=== PATIENT | female | born 1990 | race Caucasian/White ===

== ENCOUNTER 2020-11-24 17:30 | Emergency (ER) | payer SELFPAY ==
[2020-11-24 18:03] VITALS: BP 147/95; PULSE 89; RESP 18; TEMP 37.3; O2SAT 100; BMI 18.4
[2020-11-24 21:39] VITALS: BP 153/97; PULSE 77; RESP 18; O2SAT 100
--- NOTE | 2020-11-24 21:45 | ED_ITS ---
HPI - General Adult General: Chief complaint: General Medical Stated complaint: COMING OFF MEDS: JASWINDERS ,SHAKY,DEPRESSED,ANXIOUS Time Seen by Provider: 11/24/20 21:39 History of Present Illness: HPI narrative: Patient is a 30-year-old female comes to the ED with anxiety and needing medication refills. Patient just moved here to [place] from [place] within the last couple weeks. She is currently on a prescription for Pristiq 50mg, Klonopin 0.5mg and Ambien. She has run out of her prescription for all 3 meds about a week and a half ago and is try to get set up with behavioral health here. She reports feeling some increased anxiety and is still with a lot of stress from her move. Denies any SI or HI. Associated symptoms: Deny chest pain, dyspnea, headache(s), nausea, rash, palpitations or vomiting Review of Systems Const: Denies: fever(s), chills or fatigue Eyes: Denies: change in vision or eye discomfort ENMT: Denies: throat pain, odynophagia, nasal discharge or nasal congestion Card: Denies: chest pain, palpitations, edema, swelling of feet/ankles, dyspnea on exertion or orthopnea Resp: Denies: dyspnea, productive cough or non-productive cough GI: Denies: abdominal pain, nausea, vomiting, diarrhea, constipation or hematochezia : Denies: flank pain, dysuria or hematuria Musc: Denies: neck pain, back pain or extremity swelling Skin/Breast: Denies: rash or new lesions Neuro: Denies: headache(s), numbness in extremities or weakness in extremities Psych: Reports: anxiety; Denies: suicidal ideation or homicidal ideation [facility] ED PFSH: Medical History Depression Female Reproductive History: Date of last menstrual period: 10/30/20 Physical Exam Const: COMMON NORMALS: no acute distress, patient oriented x3, healthy appearing and alert GENERAL APPEARANCE: cooperative and comfortable HENMT: COMMON NORMALS: normocephalic HEAD & SCALP: normocephalic MOUTH: Normal oral and palatal mucosa present THROAT: posterior oropharynx normal and uvula midline Eye: COMMON NORMALS: Equal, round and reactive pupils present PUPIL: Yes Equal, round and reactive pupils present Neck/C-Spine: COMMON NORMALS: supple GENERAL: Yes normal visual inspection Resp: COMMON NORMALS: normal respiratory effort, No retractions, No use of accessory muscles and clear to auscultation bilaterally AUSCULTATION: clear to auscultation bilaterally Cardio: COMMON NORMALS: regular rate, regular rhythm, S1 normal heart sound present, S2 normal heart sound present, No gallops present (Cardio), No clicks present (Cardio), No murmurs present (Cardio) and Peripheral pulses 2+ throughout RATE: regular rate RHYTHM: regular rhythm HEART SOUNDS: S1 normal heart sound present and S2 normal heart sound present PERIPHERAL PULSES: Peripheral pulses 2+ throughout GI: COMMON NORMALS: Normal to inspection, nondistended, normoactive bowel sounds present, Soft to palpation, non-tender and no masses PALPATION: Yes Soft to palpation : COMMON NORMALS: Yes no CVA tenderness BLADDER/KIDNEY EXAM: Yes no CVA tenderness Back/Pelvis: COMMON NORMALS: no CVA tenderness Extremity: COMMON NORMALS: normal to inspection Neuro: COMMON NORMALS: patient oriented x3 and moves all extremities SENSORIUM/ORIENTATION: Yes alert Psych: COMMON NORMALS: mental status grossly normal, Normal thought process present, cooperative, speech normal, activity/motor behavior normal, denies hallucinations, denies homicidal ideation and denies suicidal ideation SPEECH: Yes normal speech THOUGHT PROCESS: Normal thought process present Skin: GENERAL SKIN EXAM: dry skin Course Vital Signs: Vital signs: Vital Signs Temperature 99.2 F 11/24/20 18:03 Pulse Rate 77 11/24/20 21:39 Respiratory Rate 18 11/24/20 21:39 Blood Pressure 153/97 11/24/20 21:39 Pulse Oximetry 100 11/24/20 21:39 MDM - General Adult 2 MDM Narrative: Medical decision making narrative: Patient is a 30-year-old female comes to the ED with medication refill and anxiety. Patient currently takes Pristiq and Klonopin and has been out of her prescription of this for the past week and a half. Patient just moved from [place] couple weeks ago and is trying to get established with behavioral health. Patient denies any HI or SI. Exam shows a healthy 30-year-old female in no acute distress or pain. Rest of exam is benign. I placed an order with case management for patient to be referred to behavioral health to get established with them. Patient was given a dose of Ativan while here in the ED and then discharged home with a prescription for Pristiq and Klonopin. I told patient that case management will be contacting them in the next several days set up an appoint with behavioral health. Return to ED precautions given. Patient understood agree with plan. Discharge Plan Discharge Patient Disposition: Home Clinical Impression: Anxiety, Medication refill Condition: Stable Prescriptions: New Pristiq 50 mg tablet extended release 24 hr 50 mg PO DAILY Qty: 20 RF: 0 Discharge Orders: Discharge ED (Routine); Ordered 11/24/20 Ordered By: Nando Peres Discharge Diet: Regular Discharge Activity: Resume usual activity Patient Instructions: Clonazepam (By mouth), Anxiety (ED) Activity Restrictions/Additional Instructions: Follow-up with medical provider as directed. Case management should be contac ting you in the next several days set up an appointment with behavioral health. Take medications as prescribed. Return to the ER or your medical provider if condition worsens. Please read and understand discharge instructions. Thank you for choosing [facility] for your healthcare needs today. Please realize this is an emergency room and that we are providing you with a medical screening exam and this may not be complete and all inclusive of all the testing and or work up that you may need to determine your ailment or severity of your illness. It is very important that you follow up as instructed or that you return to the Emergency Department should you have concerns or if your condition changes or worsens in any way. Coding Level of Care Code ED Specialty Sales Consultant for Scarlett Garcia Exam Comprehensive
[2020-11-24] MEDS: LORazepam 1 mg Tablet PO (22:29)
--- NOTE | 2020-11-29 09:57 | DCPLANNER ---
lead portfolio manager had message to speak with patient about services at [facility]. lead portfolio manager called phone number [phone], unable to speak with patient at this time, and unable to leave a voicemail for patient due to no voicemail box set up.
== END 2020-11-24 23:04 | disposition home or self-care (01) ==
PROVIDERS: Emergency Provider Physician Assistant
DX: Z76.0 Encounter for issue of repeat prescription (principal); F41.9 Anxiety disorder, unspecified
CPT/HCPCS: 99283

== ENCOUNTER 2020-12-20 11:47 | Inpatient (IN) | payer OTHER, SELFPAY ==
[2020-12-20 12:14] VITALS: BP 123/67; PULSE 74; RESP 19; TEMP 36.9; O2SAT 97
--- NOTE | 2020-12-20 12:49 | W.ED.GENADLT ---
Documented by User: BHARATH Davey 12/21/20 10:49 HPI - General Adult General: Chief complaint: General Medical Stated complaint: sent by [facility] Time Seen by Provider: 12/20/20 12:48 History of Present Illness: HPI narrative: Patient is a 30-year-old female comes to the ED with SI. Patient was seen by [facility] earlier today and then was sent over here to the ED for further evaluation. Patient is currently out of her Pristiq medication and [facility] was unable to have patient seen by a doctor to prescribe her med for another 2 more months. She reports going through a lot of stress currently and is the middle of custody issue with her daughter. She feels like she is under a lot of stress right now and says she is having a lot of thoughts of suicide. She denies having a current plan in place. She is also complaining of skin burning painful to touch. Associated symptoms: Deny chest pain, dyspnea, headache(s), nausea, rash, palpitations or vomiting Review of Systems Const: Denies: fever(s), chills or fatigue Eyes: Denies: change in vision or eye discomfort ENMT: Denies: throat pain, odynophagia, nasal discharge or nasal congestion Card: Denies: chest pain, palpitations, edema, swelling of feet/ankles, dyspnea on exertion or orthopnea Resp: Denies: dyspnea, productive cough or non-productive cough GI: Denies: abdominal pain, nausea, vomiting, diarrhea, constipation or hematochezia : Denies: flank pain, dysuria or hematuria Musc: Denies: neck pain, back pain or extremity swelling Skin/Breast: Denies: rash or new lesions Neuro: Denies: headache(s), numbness in extremities or weakness in extremities Psych: Reports: anxiety, depression, sleeping less and suicidal ideation; Denies: visual hallucinations, auditory hallucinations, tactile hallucinations or homicidal ideation [facility] PFSH: Medical History Depression Female Reproductive History: Date of last menstrual period: 10/30/20 Physical Exam Const: COMMON NORMALS: no acute distress, patient oriented x3, healthy appearing and alert GENERAL APPEARANCE: cooperative, anxious and other (pt is tearful during HPI) HENMT: COMMON NORMALS: normocephalic HEAD & SCALP: normocephalic MOUTH: Normal oral and palatal mucosa present THROAT: posterior oropharynx normal and uvula midline Neck/C-Spine: COMMON NORMALS: supple GENERAL: Yes normal visual inspection Resp: COMMON NORMALS: normal respiratory effort, No retractions, No use of accessory muscles and clear to auscultation bilaterally AUSCULTATION: clear to auscultation bilaterally Cardio: COMMON NORMALS: regular rate, regular rhythm, S1 normal heart sound present, S2 normal heart sound present, No gallops present (Cardio), No clicks present (Cardio), No murmurs present (Cardio) and Peripheral pulses 2+ throughout RATE: regular rate RHYTHM: regular rhythm HEART SOUNDS: S1 normal heart sound present and S2 normal heart sound present PERIPHERAL PULSES: Peripheral pulses 2+ throughout GI: COMMON NORMALS: Normal to inspection, nondistended, normoactive bowel sounds present, Soft to palpation, non-tender and no masses PALPATION: Yes Soft to palpation : COMMON NORMALS: Yes no CVA tenderness BLADDER/KIDNEY EXAM: Yes no CVA tenderness Back/Pelvis: COMMON NORMALS: no CVA tenderness Extremity: COMMON NORMALS: normal to inspection Neuro: COMMON NORMALS: patient oriented x3 and moves all extremities SENSORIUM/ORIENTATION: Yes alert Psych: COMMON NORMALS: mental status grossly normal, Normal thought process present, cooperative and speech normal ATTITUDE: Yes calm ACTIVITY/MOTOR BEHAVIOR: Yes appropriate eye contact SPEECH: Yes normal speech MOOD & AFFECT: Yes anxious, Yes sad and Yes tearful THOUGHT PROCESS: Normal thought process present THOUGHT CONTENT: Yes Suicidality present ATTENTION/CONCENTRATION: Yes attention grossly intact and Yes concentration grossly intact MEMORY/COGNITION: Yes memory grossly intact and Yes cognition grossly intact INSIGHT: Fair insight present (Psych) JUDGEMENT: Fair judgement present (Psych) Skin: GENERAL SKIN EXAM: dry skin Course Consultations: Consultation #1: I contacted Dr. Godinez about patient case. He agreed to have patient admitted into the [facility]. Time: 14:00 Vital Signs: Vital signs: Vital Signs Temperature 97.5 F L 12/23/20 09:27 Pulse Rate 58 L 12/23/20 09:27 Respiratory Rate 16 12/23/20 09:27 Blood Pressure 87/53 12/23/20 09:27 Pulse Oximetry 96 12/23/20 09:27 MDM - General Adult MDM Narrative: Medical decision making narrative: Patient is a 30-year-old female comes to the ED with SI. Patient was seen at [facility] earlier today and then was sent here to the ED for evaluation. She has been out of her medication Pristiq and having worsening depression and anxiety. She is also going through a lot of stress right now. Has a lot of suicidal thoughts but does not currently have a plan. Screening exam performed and all screening labs completed here in the ED. Patient's urine drug screen was positive for marijuana and benzodiazepines. I contacted Dr. Godinez and told him about patient case. He agreed to have patient admitted into the [facility]. I talked with Dr. Siddiqi about patient and he will be placing the admitting orders. Lab Data: Attestation: I reviewed the patient's lab results. Labs: Lab Results 12/20/20 12/20/20 12/20/20 Range/Units 13:18 13:18 13:18 WBC 7.7 (4.0-10.0) 10^3/ uL RBC 4.56 (4.1-5.3) 10^6/u L Hgb 14.5 (11.5-15.3) g/dL Hct 44.8 (37.0-47.0) % MCV 98.2 (81-99) fl MCH 31.8 (28.0-34.0) pg MCHC 32.4 (30.0-36.0) g/dL RDW 12.2 (12.1-15.1) % Plt Count 281 (130-400) 10^3/c mm MPV 10.4 (7.4-10.4) fL Neut % (Auto) 71.9 % Lymph % (Auto) 22.3 % Henderson % (Auto) 3.2 % Eos % (Auto) 2.1 % Baso % (Auto) 0.4 % Neut # (Auto) 5.56 (1.8-7.7) 10^3/u L Lymph # (Auto) 1.7 (0.8-4.8) 10^3/u L Henderson # (Auto) 0.3 (0.2-0.9) 10^3/u L Eos # (Auto) 0.2 (0.0-0.8) 10^3/u L Baso # (Auto) 0.0 (0.0-0.1) 10^3/u L Nucleated RBC % (a uto) 0 % Nucleated RBCs # 0.0 /100WBC Sodium 138 (136-145) mmol/L Potassium 3.5 (3.5-5.1) mmol/L Chloride 101 (98-107) mmol/L Carbon Dioxide 26 (22-29) mmol/L Anion Gap 14.5 (5-19) BUN 4 L (6-20) mg/dL Creatinine 0.6 (0.5-0.9) mg/dL GFR Calculation 118.2 (90-130) mL/min Glucose 114 (65-115) mg/dL Calculated Osmolal ity 284 L (285-295) mOsm/k g Calcium 8.6 (8.5-10.5) mg/dL Total Bilirubin 0.4 (0.15-1.2) mg/dL AST 11 (0-32) U/L ALT 10 (0-33) U/L Alkaline Phosphata se 49 (35-105) IU/L Total Protein 6.8 (6.6-8.7) g/dL Albumin 4.6 (3.5-5.2) g/dL Globulin 2.2 (1.3-4.6) g/dL HCG, Qual Negative (Negative) Urine Color (Yellow) Urine Appearance (CLEAR) Urine pH (5-7) Ur Specific Gravit y (1.005-1.030) Urine Protein (Negative) Urine Glucose (UA) (Normal) Urine Ketones (Negative) Urine Blood (Negative) Urine Nitrate (Negative) Urine Bilirubin (Negative) Urine Urobilinogen (Negative) mg/dL Ur Leukocyte Osiris ase (Negative) Urine RBC (0-2) /hpf Urine WBC (0-5) /hpf Ur Squamous Epith Cells (0-5) /hpf Amorphous Sediment Urine Bacteria (NONE) /hpf Salicylates < 0.3 L (3-10) mg/dL Urine Opiates Scre en (Negative) ng/mL Acetaminophen < 5.0 L (10-30) ug/mL Ur Barbiturates Sc reen (Negative) ng/mL Ur Phencyclidine S crn (Negative) ng/mL Ur Amphetamines Sc reen (Negative) ng/mL U Benzodiazepines Scrn (Negative) ng/mL Urine Cocaine Scre en (Negative) ng/mL U Marijuana (THC) Screen (Negative) ng/mL Ethyl Alcohol < 10 (0-10) mg/dL 12/20/20 12/20/20 Range/Units 13:18 13:18 WBC (4.0-10.0) 10^3/ uL RBC (4.1-5.3) 10^6/u L Hgb (11.5-15.3) g/dL Hct (37.0-47.0) % MCV (81-99) fl MCH (28.0-34.0) pg MCHC (30.0-36.0) g/dL RDW (12.1-15.1) % Plt Count (130-400) 10^3/c mm MPV (7.4-10.4) fL Neut % (Auto) % Lymph % (Auto) % Henderson % (Auto) % Eos % (Auto) % Baso % (Auto) % Neut # (Auto) (1.8-7.7) 10^3/u L Lymph # (Auto) (0.8-4.8) 10^3/u L Henderson # (Auto) (0.2-0.9) 10^3/u L Eos # (Auto) (0.0-0.8) 10^3/u L Baso # (Auto) (0.0-0.1) 10^3/u L Nucleated RBC % (a uto) % Nucleated RBCs # /100WBC Sodium (136-145) mmol/L Potassium (3.5-5.1) mmol/L Chloride (98-107) mmol/L Carbon Dioxide (22-29) mmol/L Anion Gap (5-19) BUN (6-20) mg/dL Creatinine (0.5-0.9) mg/dL GFR Calculation (90-130) mL/min Glucose (65-115) mg/dL Calculated Osmolal ity (285-295) mOsm/k g Calcium (8.5-10.5) mg/dL Total Bilirubin (0.15-1.2) mg/dL AST (0-32) U/L ALT (0-33) U/L Alkaline Phosphata se (35-105) IU/L Total Protein (6.6-8.7) g/dL Albumin (3.5-5.2) g/dL Globulin (1.3-4.6) g/dL HCG, Qual (Negative) Urine Color Yellow (Yellow) Urine Appearance Hazy A (CLEAR) Urine pH 5 (5-7) Ur Specific Gravit y 1.020 (1.005-1.030) Urine Protein Neg (Negative) Urine Glucose (UA) Norm (Normal) Urine Ketones Negative (Negative) Urine Blood Neg (Negative) Urine Nitrate Negative (Negative) Urine Bilirubin Neg (Negative) Urine Urobilinogen Norm (Negative) mg/dL Ur Leukocyte Osiris ase 1+ H (Negative) Urine RBC None (0-2) /hpf Urine WBC 5-10 H (0-5) /hpf Ur Squamous Epith Cells 40-55 H (0-5) /hpf Amorphous Sediment Not Reportable Urine Bacteria 1+ H (NONE) /hpf Salicylates (3-10) mg/dL Urine Opiates Scre en Negative (Negative) ng/mL Acetaminophen (10-30) ug/mL Ur Barbiturates Sc reen Negative (Negative) ng/mL Ur Phencyclidine S crn Negative (Negative) ng/mL Ur Amphetamines Sc reen Negative (Negative) ng/mL U Benzodiazepines Scrn Positive H (Negative) ng/mL Urine Cocaine Scre en Negative (Negative) ng/mL U Marijuana (THC) Screen Positive H (Negative) ng/mL Ethyl Alcohol (0-10) mg/dL Discharge Plan Discharge Patient Disposition: Admitted As Inpatient Admit Provider: Clyde Godinez Clinical Impression: Depression Condition: Stable Discharge Diet: Regular Discharge Activity: Resume usual activity Sign Out Sign Out Data: Patient Sign Out occurred on 12/20/20 at 14:14. Patient's care was discussed, and care was transferred from to Eamon Trinidad DO. Coding Level of Care Code ED Compliance Engineer for Chg Fwd Exam Comprehensive Documented by User: Eamon Trinidad DO 12/26/20 09:09 HPI - General Adult General: Chief complaint: General Medical Stated complaint: sent by [facility] Time Seen by Provider: 12/20/20 12:48 PFSH ED PFSH: Medical History Depression Course Vital Signs: Vital signs: Vital Signs Temperature 97.5 F L 12/23/20 09:27 Pulse Rate 58 L 12/23/20 09:27 Respiratory Rate 16 12/23/20 09:27 Blood Pressure 87/53 12/23/20 09:27 Pulse Oximetry 96 12/23/20 09:27 MDM - General Adult MDM Narrative: Medical decision making narrative: Reviewed chart and seen pt in the ER. Discussed with Catrachita and admit orders written. Lab Data: Labs: Lab Results 12/20/20 12/20/20 12/20/20 Range/Units 13:18 13:18 13:18 WBC 7.7 (4.0-10.0) 10^3/ uL RBC 4.56 (4.1-5.3) 10^6/u L Hgb 14.5 (11.5-15.3) g/dL Hct 44.8 (37.0-47.0) % MCV 98.2 (81-99) fl MCH 31.8 (28.0-34.0) pg MCHC 32.4 (30.0-36.0) g/dL RDW 12.2 (12.1-15.1) % Plt Count 281 (130-400) 10^3/c mm MPV 10.4 (7.4-10.4) fL Neut % (Auto) 71.9 % Lymph % (Auto) 22.3 % Henderson % (Auto) 3.2 % Eos % (Auto) 2.1 % Baso % (Auto) 0.4 % Neut # (Auto) 5.56 (1.8-7.7) 10^3/u L Lymph # (Auto) 1.7 (0.8-4.8) 10^3/u L Henderson # (Auto) 0.3 (0.2-0.9) 10^3/u L Eos # (Auto) 0.2 (0.0-0.8) 10^3/u L Baso # (Auto) 0.0 (0.0-0.1) 10^3/u L Nucleated RBC % (a uto) 0 % Nucleated RBCs # 0.0 /100WBC Sodium 138 (136-145) mmol/L Potassium 3.5 (3.5-5.1) mmol/L Chloride 101 (98-107) mmol/L Carbon Dioxide 26 (22-29) mmol/L Anion Gap 14.5 (5-19) BUN 4 L (6-20) mg/dL Creatinine 0.6 (0.5-0.9) mg/dL GFR Calculation 118.2 (90-130) mL/min Glucose 114 (65-115) mg/dL Calculated Osmolal ity 284 L (285-295) mOsm/k g Calcium 8.6 (8.5-10.5) mg/dL Total Bilirubin 0.4 (0.15-1.2) mg/dL AST 11 (0-32) U/L ALT 10 (0-33) U/L Alkaline Phosphata se 49 (35-105) IU/L Total Protein 6.8 (6.6-8.7) g/dL Albumin 4.6 (3.5-5.2) g/dL Globulin 2.2 (1.3-4.6) g/dL HCG, Qual Negative (Negative) Urine Color (Yellow) Urine Appearance (CLEAR) Urine pH (5-7) Ur Specific Gravit y (1.005-1.030) Urine Protein (Negative) Urine Glucose (UA) (Normal) Urine Ketones (Negative) Urine Blood (Negative) Urine Nitrate (Negative) Urine Bilirubin (Negative) Urine Urobilinogen (Negative) mg/dL Ur Leukocyte Osiris ase (Negative) Urine RBC (0-2) /hpf Urine WBC (0-5) /hpf Ur Squamous Epith Cells (0-5) /hpf Amorphous Sediment Urine Bacteria (NONE) /hpf Salicylates < 0.3 L (3-10) mg/dL Urine Opiates Scre en (Negative) ng/mL Acetaminophen < 5.0 L (10-30) ug/mL Ur Barbiturates Sc reen (Negative) ng/mL Ur Phencyclidine S crn (Negative) ng/mL Ur Amphetamines Sc reen (Negative) ng/mL U Benzodiazepines Scrn (Negative) ng/mL Urine Cocaine Scre en (Negative) ng/mL U Marijuana (THC) Screen (Negative) ng/mL Ethyl Alcohol < 10 (0-10) mg/dL 12/20/20 12/20/20 Range/Units 13:18 13:18 WBC (4.0-10.0) 10^3/ uL RBC (4.1-5.3) 10^6/u L Hgb (11.5-15.3) g/dL Hct (37.0-47.0) % MCV (81-99) fl MCH (28.0-34.0) pg MCHC (30.0-36.0) g/dL RDW (12.1-15.1) % Plt Count (130-400) 10^3/c mm MPV (7.4-10.4) fL Neut % (Auto) % Lymph % (Auto) % Henderson % (Auto) % Eos % (Auto) % Baso % (Auto) % Neut # (Auto) (1.8-7.7) 10^3/u L Lymph # (Auto) (0.8-4.8) 10^3/u L Henderson # (Auto) (0.2-0.9) 10^3/u L Eos # (Auto) (0.0-0.8) 10^3/u L Baso # (Auto) (0.0-0.1) 10^3/u L Nucleated RBC % (a uto) % Nucleated RBCs # /100WBC Sodium (136-145) mmol/L Potassium (3.5-5.1) mmol/L Chloride (98-107) mmol/L Carbon Dioxide (22-29) mmol/L Anion Gap (5-19) BUN (6-20) mg/dL Creatinine (0.5-0.9) mg/dL GFR Calculation (90-130) mL/min Glucose (65-115) mg/dL Calculated Osmolal ity (285-295) mOsm/k g Calcium (8.5-10.5) mg/dL Total Bilirubin (0.15-1.2) mg/dL AST (0-32) U/L ALT (0-33) U/L Alkaline Phosphata se (35-105) IU/L Total Protein (6.6-8.7) g/dL Albumin (3.5-5.2) g/dL Globulin (1.3-4.6) g/dL HCG, Qual (Negative) Urine Color Yellow (Yellow) Urine Appearance Hazy A (CLEAR) Urine pH 5 (5-7) Ur Specific Gravit y 1.020 (1.005-1.030) Urine Protein Neg (Negative) Urine Glucose (UA) Norm (Normal) Urine Ketones Negative (Negative) Urine Blood Neg (Negative) Urine Nitrate Negative (Negative) Urine Bilirubin Neg (Negative) Urine Urobilinogen Norm (Negative) mg/dL Ur Leukocyte Osiris ase 1+ H (Negative) Urine RBC None (0-2) /hpf Urine WBC 5-10 H (0-5) /hpf Ur Squamous Epith Cells 40-55 H (0-5) /hpf Amorphous Sediment Not Reportable Urine Bacteria 1+ H (NONE) /hpf Salicylates (3-10) mg/dL Urine Opiates Scre en Negative (Negative) ng/mL Acetaminophen (10-30) ug/mL Ur Barbiturates Sc reen Negative (Negative) ng/mL Ur Phencyclidine S crn Negative (Negative) ng/mL Ur Amphetamines Sc reen Negative (Negative) ng/mL U Benzodiazepines Scrn Positive H (Negative) ng/mL Urine Cocaine Scre en Negative (Negative) ng/mL U Marijuana (THC) Screen Positive H (Negative) ng/mL Ethyl Alcohol (0-10) mg/dL Discharge Plan Discharge Patient Disposition: Admitted As Inpatient Admit Provider: Clyde Godinez Clinical Impression: Depression Condition: Stable Discharge Diet: Regular Discharge Activity: Resume usual activity Sign Out Sign Out Data: Patient Sign Out occurred on 12/20/20 at 14:14. Patient's care was discussed, and care was transferred from to Eamon Trinidad DO. Coding Level of Care Code ED Compliance Engineer for Jeffreyg Fwd Exam Comprehensive
[2020-12-20] MEDS: LORazepam 1 mg Tablet PO (13:27)
[2020-12-20 13:28] LABS: Basophils % 0.4 %; Eosinophils # 0.2 10^3/uL (0.0-0.8); Eosinophils % 2.1 %; Hematocrit 44.8 % (37.0-47.0); Hemoglobin 14.5 g/dL (11.5-15.3); Lymphocytes # 1.7 10^3/uL (0.8-4.8); Lymphocytes % 22.3 %; Mean Corpuscular HGB Conc 32.4 g/dL (30.0-36.0); Mean Corpuscular Hemoglobin 31.8 pg (28.0-34.0); Mean Corpuscular Volume 98.2 fl (81-99); Mean Platelet Volume 10.4 fL (7.4-10.4); Monocytes # 0.3 10^3/uL (0.2-0.9); Monocytes % 3.2 %; Neutrophils # 5.56 10^3/uL (1.8-7.7); Neutrophils % 71.9 %; Nucleated Red Blood Cells % 0 %; Platelet Count 281 10^3/cmm (130-400); Red Blood Count 4.56 10^6/uL (4.1-5.3); Red Cell Distribution Width 12.2 % (12.1-15.1); White Blood Count 7.7 10^3/uL (4.0-10.0)
[2020-12-20 13:35] LABS: Bilirubin Urine Neg (Negative); Blood Urine Neg (Negative); Glucose Urine UA Norm (Normal); Ketones Urine Negative (Negative); Leukocyte Esterase Urine 1+ (Negative); Nitrate Urine Negative (Negative); Protein Urine Neg (Negative); Urine Appearance Hazy (CLEAR); Urine Color Yellow (Yellow); Urobilinogen Urine Norm (Negative); pH Urine 5 (5-7)
[2020-12-20 13:37] LABS: Add Urine Culture? No; Bacteria Urine 1+ /hpf; HCG, Serum Qual Negative (Negative); Squamous Epithelial Cell Urine 40-55 /hpf (0-5)
[2020-12-20 13:39] LABS: Amphetamines Screen Urine Negative (Negative); Barbiturates Screen Urine Negative (Negative); Benzodiazepines Screen Urine Positive (Negative); Cocaine Screen Urine Negative (Negative); Opiate Screen Urine Negative (Negative); PCP Screen Urine Negative (Negative); THC Screen Urine Positive (Negative)
[2020-12-20 13:44] LABS: Alanine Aminotransferase 10 U/L (0-33); Albumin Level 4.6 g/dL (3.5-5.2); Alkaline Phosphatase 49 IU/L (35-105); Anion Gap 14.5 (5-19); Aspartate Amino Transferase 11 U/L (0-32); Blood Urea Nitrogen 4 mg/dL (6-20); Calcium 8.6 mg/dL (8.5-10.5); Carbon Dioxide 26 mmol/L (22-29); Chloride 101 mmol/L (98-107); Globulin 2.2 g/dL (1.3-4.6); Glomerular Filtration Rate 118.2 mL/min (90-130); Glucose 114 mg/dL (65-115); Osmolality Calculated 284 mOsm/kg (285-295); Potassium 3.5 mmol/L (3.5-5.1); Sodium 138 mmol/L (136-145); Total Bilirubin 0.4 mg/dL (0.15-1.2); Total Protein 6.8 g/dL (6.6-8.7)
[2020-12-20 13:47] LABS: Acetaminophen < 5.0 ug/mL (10-30); Alcohol Level < 10 mg/dL (0-10); Salicylate < 0.3 mg/dL (3-10)
[2020-12-20 16:41] VITALS: BP 104/66; PULSE 65; RESP 16; TEMP 36.7; O2SAT 99
[2020-12-20] MEDS: nicotine 2 mg Gum BUCCAL (18:48)
[2020-12-20 21:37] VITALS: BP 94/59; PULSE 73; RESP 17; TEMP 36.8; O2SAT 98
[2020-12-20] MEDS: zolpidem 5 mg Tablet 10 MG PO (23:16)
[2020-12-21 06:00] VITALS: BP 93/57; PULSE 60; RESP 18; TEMP 36.6; O2SAT 97
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
[2020-12-21] MEDS: desvenlafaxine 50 mg Tablet PO (08:27)
[2020-12-21] MEDS: acetaminophen 325 mg Tablet 650 MG PO (08:27)
[2020-12-21] MEDS: hyDROXYzine 25 mg Capsule 50 MG PO ×2 (08:27→18:01)
[2020-12-21] MEDS: CLONazepam 0.5 mg Tablet PO (13:39)
[2020-12-21 14:00] VITALS: BP 94/56; PULSE 74; RESP 20; TEMP 36.7; O2SAT 98
[2020-12-21] MEDS: nicotine 2 mg Gum BUCCAL (19:17)
[2020-12-21] MEDS: propranolol 20 mg Tablet PO (19:58)
[2020-12-21] MEDS: zolpidem 5 mg Tablet 10 MG PO (19:58)
[2020-12-21] MEDS: OLANZapine 5 mg ODT PO (21:12)
[2020-12-21 21:35] VITALS: BP 112/72; PULSE 76; RESP 16; TEMP 37.3; O2SAT 97
[2020-12-22 05:57] VITALS: BP 96/55; PULSE 52; RESP 16; TEMP 36.7; O2SAT 96
[2020-12-22] MEDS: desvenlafaxine 50 mg Tablet 100 MG PO (08:38)
[2020-12-22] MEDS: nicotine 2 mg Gum BUCCAL ×3 (08:57→17:26)
--- NOTE | 2020-12-22 11:35 | PM.NPN ---
Subjective NPU Subjective: Interval history: Patient presents today reporting she is feeling a little better now that the medication has been started and increased. She reports that her mother and her did speak and her mother does not want her to go to a penitentiary with her daughter and so she is going to help her get some housing. She professes feeling less stressed and feeling more optimistic knowing she will have access to her medication at discharge. We talked about the possibility discharge in the morning. Mental Status Exam MSE Comments: This is a slender, white female, in hospital scrubs, with limited grooming, and adequate eye contact. No abnormal movements except for mild psychomotor retardation. Cooperative with exam in mild distress. Speech was decreased rate and volume. Mood described as a little better; affect subdued. Thought process, organized. Thought content: patient denied any suicidal or homicidal ideation, there were no delusions reported or noted, patient denied any auditory or visual hallucinations. Attention, concentration, and memory appear intact but were not formally tested. He is alert and oriented times three. Insight and judgment appear fair. Impulse control appears fair. Vitals/I&O/Wt Last Vital Signs Temp 99.2 F 12/21/20 21:35 Pulse 76 12/21/20 21:35 Resp 16 12/21/20 21:35 BP 112/72 12/21/20 21:35 Pulse Ox 97 12/21/20 21:35 Weight last 48 hrs Weight 60.781 kg Data NPU : 12/20/20 13:18 12/20/20 13:18 A&P Additional A&P Information (1) PTSD (post-traumatic stress disorder): (2) Depression: Additional A&P Information This is a 30-year-old, white female, with a history of post-traumatic stress disorder, and significant trauma, with a recent move to the area with limited resources and unable to get bridge medication, who presents after a conflict at home, reporting a willingness to have medication adjustments. RECOMMENDATION AND PLAN: 1. Continue current medication. 2. Encourage individual, group, and milieu therapy. 3. Continue q-15 minute checks for safety. Involuntary Hold Information 96 Hour Hold: 96 Hour Involuntary Admission: No Attestations NPU Medical Necessity Statement*: Inpatient hospitalization is medically necessary and the clinically appropriate intervention, at this time. We will monitor medications and make changes as indicated. Patient will be in the hospital for over two midnights. Likely length of stay is 1-3 days. Coding Level of Care Code Acute Hammer Mill Operator for Scarlett Garcia
[2020-12-22] MEDS: CLONazepam 0.5 mg Tablet PO (12:02)
[2020-12-22] MEDS: acetaminophen 325 mg Tablet 650 MG PO (12:02)
--- NOTE | 2020-12-22 12:04 | PC.NURSE ---
PRN anxiety Patient requested anxiety medication. Given 0.5 mg of Klonopin.
--- NOTE | 2020-12-22 13:23 | NPU.GN ---
[facility] Group Topic:Communication General Mood of Group: Patient did not attend group today, she was very tired. Nursing staff agreed to leave her asleep.
[2020-12-22 14:00] VITALS: BP 111/65; PULSE 55; RESP 18; TEMP 36.6; O2SAT 97
[2020-12-22] MEDS: propranolol 20 mg Tablet PO (17:26)
[2020-12-22 20:44] VITALS: BP 121/77; PULSE 70; RESP 18; TEMP 37; O2SAT 98
[2020-12-22] MEDS: zolpidem 5 mg Tablet 10 MG PO (21:20)
[2020-12-22] MEDS: haloperidol 5 mg Tablet PO (22:22)
[2020-12-23 06:00] VITALS: BP 87/53; PULSE 58; RESP 16; TEMP 36.4; O2SAT 96
[2020-12-23] MEDS: desvenlafaxine 50 mg Tablet 100 MG PO (08:48)
[2020-12-23] MEDS: propranolol 20 mg Tablet PO (08:48)
[2020-12-23] MEDS: nicotine 2 mg Gum BUCCAL ×2 (08:48→11:37)
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
[2020-12-23] MEDS: CLONazepam 0.5 mg Tablet PO (09:13)
[2020-12-23 09:27] VITALS: BP 87/53; PULSE 58; RESP 16; TEMP 36.4; O2SAT 96
== END 2020-12-23 13:33 | disposition home or self-care (01) | DRG 881 ==
LOC: ER 14:14 → NP 14:51
PROVIDERS: Physician Assistant; Admitting Provider Psychiatry & Neurology Psychiatry; Emergency Provider Family Medicine; Visit Provider Psychiatry & Neurology Psychiatry
DX: F32.9 Major depressive disorder, single episode, unspecified (principal); R45.851 Suicidal ideations; F17.210 Nicotine dependence, cigarettes, uncomplicated; F12.90 Cannabis use, unspecified, uncomplicated; Z81.8 Family history of other mental and behavioral disorders; F43.10 Post-traumatic stress disorder, unspecified; F48.1 Depersonalization-derealization syndrome; Z91.128 Patient's intentional underdosing of medication regimen for other reason
CPT/HCPCS: 80053; 80306; 80307; 81001; 84703; 85025; 99285

== ENCOUNTER 2021-02-03 12:31 | Emergency (ER) | payer OTHER, SELFPAY ==
[2021-02-03 12:41] VITALS: BP 109/60; PULSE 83; RESP 24; TEMP 36.8; O2SAT 100
--- NOTE | 2021-02-03 12:51 | ED_ITS ---
HPI - General Adult General: Chief complaint: COVID symptoms Stated complaint: RESPIRATORY DISTRESS/ COVID + Time Seen by Provider: 02/03/21 12:34 History of Present Illness: HPI narrative: CC: Shortness of breath, fever and generalized weakness HPI: This is a [30] yo patient w/ hx of recent covid diagnosis from 2 days BIBA for moderate respiratory distress at home x 4days of fever, subjective chill, and respiratory distress. Endorses no sick contacts around. Denies chest pain, N/V, diaphoresis, exertional shortness of breath, GI or other complaints. Denies any pleuritic chest pain, recent surgery/immobilization/travel, or hematemesis or hx of VTE in the past. En route, rescue placed on 4L with O2 sat of 92-94%. Onset: 4 days ago Duration: ongoing for the last 4 days Location: home Severity: moderate/severe Review of Systems Narrative: Constitutional: +subjective fever, +generalized weakness HEENT: No vision changes CV: No chest pain, no palpitations PULM: +cough, +dyspnea. GI: No abdominal pain, no N/V/D. : No dysuria MSKEL: No muscle pain SKIN: No new rashes, no lesions. NEURO: No headache, no focal weakness. HEME: No visible bruises PSYCH: Normal mood PFSH ED PFSH: Medical History Depression Female Reproductive History: Date of last menstrual period: 10/30/20 Physical Exam Narrative: EXAM NARRATIVE: Head: Atraumatic Eyes: PERRL, conjunctiva without injection ENT: Dry membrane moist NECK: Supple without lymphadenopathy LUNGS: +Coarse lung sounds, +rhonchi and crackles throughout the lung staples, +unable to speak full sentences, +increased work of breathing CV: RRR ABDOMEN: Soft, nontender in all quadrants, no guarding or rebound tenderness EXTREMITY: Normal ROM SKIN: No rash or erythema NEURO: Awake and alert. No focal motor deficits. PSYCH: Normal mood and affect. Course Vital Signs: Vital signs: Vital Signs Temperature 98.2 F 02/03/21 12:41 Pulse Rate 86 02/03/21 16:59 Respiratory Rate 20 H 02/03/21 16:59 Blood Pressure 111/76 02/03/21 16:59 Pulse Oximetry 99 02/03/21 16:59 MDM - General Adult MDM Narrative: Medical decision making narrative: [30]yo patient presenting to the ED with shortness of breath, cough, and malaise concerning for pneumonia with findings of fever, decreased/junky breath sounds, and tachypnea. Workup today includes XR chest and lab workup Given History, Exam, and Workup presentation most consistent with pneumonia.Presentation not consistent with PE, COPD exacerbation, Pneumothorax, TB, Atypical ACS, Esophageal Rupture, Toxic Exposure, Foreign Body Airway Obstruction. Workup: CXR Chest, covid testing Intervention: Tylenol 1gram, PO challenge, serial reassessment, oxygen [2:38pmOn reassessment, XR findings of consistent w/ covid pneumonitis . Findings consistent with viral pneumonia, suspected COVID. Afebrile currently. Patient continues to be in no respiratory distress with sats sats > 95% without requirements of oxygen in the emergency department. At this time patient is not a candidate for BAM since patient does NOT meet any of the following criteria for EUA of MCA. COVID+, symptom < 10 days, weight > 88lbs, age >12, NOT requiring additional oxygen compared to baseline AND EUA criteria for BAM: 1. any medical condition or other factor (including race, ethnicity, social/health care access inequality that puts patient at high risk for progression of disease), 2. obesity (BMI > 25), 3. , 4. CKD, 5. DM, 6. Immunocompromise, 7. cardiovascular disease/HTN, 8. Chronic lung disease, 9. SCD, 10. Neurodevelopmental disorder, 11. Chronic medical-related technological dependence (trach/g-tube/home CPAP), disability, and age >= 65. Patient does not qualify for home O2 per RT. Initial lactic acid of 2.5 however improved to 1.2 on repeat lactic acid after 500cc of IVF. No suspicion for acute sepsis at this time. Symptoms are consistent iwth COVID. I have discussed the workup today with patient who agrees to go home with serial observation. I have give patient strict return precautions for any worsening symptoms including worsening dyspnea, exertional dyspnea, cough, chest pain, dehydration, or any other concerns that patient may have. Disposition: Discharge. Patient is given strict follow up with PCP in 24-48 hrs for reassessment. Patient agrees with everything discussed today. Lab Data: Labs: Lab Results 02/03/21 02/03/21 02/03/21 13:54 13:54 13:54 WBC 6.2 10^3/uL 10^3/ uL (4.0-10.0) RBC 4.37 10^6/uL 10^6 /uL (4.1-5.3) Hgb 14.3 g/dL g/dL (11.5-15.3) Hct 40.3 % % (37.0-47.0) MCV 92.2 fl fl (81-99) MCH 32.7 pg pg (28.0-34.0) MCHC 35.5 g/dL g/dL (30.0-36.0) RDW 11.9 % L % (12.1-15.1) Plt Count 145 10^3/cmm 10^3 /cmm (130-400) MPV 12.0 fL H fL (7.4-10.4) Neut % (Auto) 89.4 % % Lymph % (Auto) 6.5 % % [place] % (Auto) 3.6 % % Eos % (Auto) 0.2 % % Baso % (Auto) 0.0 % % Neut # (Auto) 5.52 10^3/uL 10^3 /uL (1.8-7.7) Lymph # (Auto) 0.4 10^3/uL L 10^ 3/uL (0.8-4.8) [place] # (Auto) 0.2 10^3/uL 10^3/ uL (0.2-0.9) Eos # (Auto) 0.0 10^3/uL 10^3/ uL (0.0-0.8) Baso # (Auto) 0.0 10^3/uL 10^3/ uL (0.0-0.1) Nucleated RBC % (a uto) 0 % % Nucleated RBCs # 0.0 /100WBC /100W BC PT 13.20 SECONDS SEC ONDS (12.1-14.9) INR 0.98 (0.8-1.2) APTT 31.6 SECONDS SECO NDS (23.9-36.7) Fibrinogen 468 mg/dL mg/dL (174-498) D-Dimer 0.45 ug/mIFEU ug/ mIFEU (0-0.59) Sodium 135 mmol/L L mmol /L (136-145) Potassium 3.6 mmol/L mmol/L (3.5-5.1) Chloride 96 mmol/L L mmol/ L (98-107) Carbon Dioxide 17 mmol/L L mmol/ L (22-29) Anion Gap 25.6 H (5-19) BUN 13 mg/dL mg/dL (6-20) Creatinine 0.7 mg/dL mg/dL (0.5-0.9) GFR Calculation 98.9 mL/min mL/mi n (90-130) Glucose 87 mg/dL mg/dL (65-115) Calculated Osmolal ity 279 mOsm/kg L mOs m/kg (285-295) Lactic Acid Lactic Acid (Sepsi s) Lactate Calcium 8.5 mg/dL mg/dL (8.5-10.5) Total Bilirubin 0.5 mg/dL mg/dL (0.15-1.2) AST 14 U/L U/L (0-32) ALT 9 U/L U/L (0-33) Alkaline Phosphata se 45 IU/L IU/L (35-105) Lactate Dehydrogen ase 180 U/L U/L (135-214) Troponin T Gen 5 n g/L C-Reactive Protein 42.2 mg/L H mg/L (0.0-4.9) Total Protein 6.9 g/dL g/dL (6.6-8.7) Albumin 3.9 g/dL g/dL (3.5-5.2) Globulin 3.0 g/dL g/dL (1.3-4.6) Procalcitonin 0.18 ng/mL ng/mL (0-0.5) Ser , Tramaine i-Qnt 0.50 mIU/mL mIU/m L 02/03/21 02/03/21 02/03/21 13:54 13:54 15:45 WBC RBC Hgb Hct MCV MCH MCHC RDW Plt Count MPV Neut % (Auto) Lymph % (Auto) [place] % (Auto) Eos % (Auto) Baso % (Auto) Neut # (Auto) Lymph # (Auto) [place] # (Auto) Eos # (Auto) Baso # (Auto) Nucleated RBC % (a uto) Nucleated RBCs # PT INR APTT Fibrinogen D-Dimer Sodium Potassium Chloride Carbon Dioxide Anion Gap BUN Creatinine GFR Calculation Glucose Calculated Osmolal ity Lactic Acid 2.5 mmol/L H mmol /L (0.5-2.2) Lactic Acid (Sepsi s) Lactate 1.2 mmol/L mmol/L (0.5-2.2) Calcium Total Bilirubin AST ALT Alkaline Phosphata se Lactate Dehydrogen ase Troponin T Gen 5 n g/L 6 ng/L ng/L (0-10) C-Reactive Protein Total Protein Albumin Globulin Procalcitonin Ser , Tramaine i-Qnt 02/03/21 15:45 WBC RBC Hgb Hct MCV MCH MCHC RDW Plt Count MPV Neut % (Auto) Lymph % (Auto) [place] % (Auto) Eos % (Auto) Baso % (Auto) Neut # (Auto) Lymph # (Auto) [place] # (Auto) Eos # (Auto) Baso # (Auto) Nucleated RBC % (a uto) Nucleated RBCs # PT INR APTT Fibrinogen D-Dimer Sodium Potassium Chloride Carbon Dioxide Anion Gap BUN Creatinine GFR Calculation Glucose Calculated Osmolal ity Lactic Acid Lactic Acid (Sepsi s) Cancelled Lactate Calcium Total Bilirubin AST ALT Alkaline Phosphata se Lactate Dehydrogen ase Troponin T Gen 5 n g/L C-Reactive Protein Total Protein Albumin Globulin Procalcitonin Ser , Tramaine i-Qnt Imaging Data^: Other Imaging: Radiologist's impression: [address] [id number] ReportSigned Patient: Nissa Pascual #: [id number]: 1990Acct#:[id number]/ Sex: 30 / FADM Date: 02/03/21Loc: ERRoom/Bed:Attending Dr: Ordering Provider/Ordering MD: Loulou Norris MD Date of Service: 02/03/21 Procedure(s): XR chest 1V portable [id number] Accession Number(s): [id number] Report Number: [id number] WS: [id number] XR chest 1V portable [id number] REASON FOR EXAM: eval covid pna FINDINGS: Oblique No previous examination for comparison. The heart and mediastinum are within normal limits. Reticular interstitial and groundglass opacities seen in both lung bases. Similar lung opacities are seen in the left mid peripheral lung field. Bony thorax is intact. XR/XR chest 1V portable [id number] IMPRESSION: Infiltrates of unknown chronicity but compatible with acute/subacute pneumonitis. Pattern is suggestive of Covid pneumonitis. Dictated By:Kurtis Pavon Jr MDSigned By:Kurtis Pavon Jr MDSigned Date/Time:02/03/21 1316DD/ 1308 Discharge Plan Discharge Patient Disposition: Home Clinical Impression: Cough, Dyspnea Condition: Stable Prescriptions: New acetaminophen 500 mg tablet 500 mg PO Q6H PRN (Reason: pain) 5 Days Qty: 20 RF: 0 No Action propranolol 20 mg Tablet 20 mg PO TID PRN (Reason: Agitation) 30 Days Qty: 90 RF: 1 Klonopin 0.5 mg Tablet 0.5 mg PO DAILY PRN (Reason: Anxiety) 30 Days Qty: 30 RF: 1 Ambien 10 mg Tablet 10 mg PO BEDTIME 30 Days Qty: 30 RF: 1 Pristiq 100 mg tablet extended release 24 hr 100 mg PO DAILY 30 Days Qty: 30 RF: 1 Discharge Orders: Discharge ED (Routine); Ordered 02/03/21 Ordered By: Loulou Norris Discharge Diet: Advance as tolerated Discharge Activity: Resume usual activity Patient Instructions: SARS (Severe Acute Respiratory Syndrome) (ED) Activity Restrictions/Additional Instructions: Come back to the emergency room if your symptoms worsen, have any shortness of breath, fever/chills, dehydration, inability tolerate p.o., any difficulty breathing, or any new or concerning complaints. Coding Level of Care Code ED Director Pharmacy Services for Scarlett Garcia
--- NOTE | 2021-02-03 12:51 | XR_ITS ---
WS: [id number] XR chest 1V portable [id number] REASON FOR EXAM: eval covid pna FINDINGS: Oblique No previous examination for comparison. The heart and mediastinum are within normal limits. Reticular interstitial and groundglass opacities seen in both lung bases. Similar lung opacities are seen in the left mid peripheral lung field. Bony thorax is intact. XR/XR chest 1V portable [id number] IMPRESSION: Infiltrates of unknown chronicity but compatible with acute/subacute pneumoniti s. Pattern is suggestive of Covid pneumonitis.
[2021-02-03 13:20] VITALS: O2SAT 99
[2021-02-03 13:25] VITALS: PULSE 91; RESP 20; O2SAT 99
[2021-02-03] MEDS: albuterol 8 gm MDI 4 PUFF INHALATION (13:25)
[2021-02-03 13:29] VITALS: PULSE 89
[2021-02-03] MEDS: acetaminophen 500 mg Tablet 1000 MG PO (14:06)
[2021-02-03] MEDS: dexamethasone 10 mg/mL INJ 6 MG IVP (14:06)
[2021-02-03 14:11] LABS: Eosinophils % 0.2 %; Hematocrit 40.3 % (37.0-47.0); Hemoglobin 14.3 g/dL (11.5-15.3); Lymphocytes # 0.4 10^3/uL (0.8-4.8); Lymphocytes % 6.5 %; Mean Corpuscular HGB Conc 35.5 g/dL (30.0-36.0); Mean Corpuscular Hemoglobin 32.7 pg (28.0-34.0); Mean Corpuscular Volume 92.2 fl (81-99); Monocytes # 0.2 10^3/uL (0.2-0.9); Monocytes % 3.6 %; Neutrophils # 5.52 10^3/uL (1.8-7.7); Neutrophils % 89.4 %; Nucleated Red Blood Cells % 0 %; Platelet Count 145 10^3/cmm (130-400); Red Blood Count 4.37 10^6/uL (4.1-5.3); Red Cell Distribution Width 11.9 % (12.1-15.1); White Blood Count 6.2 10^3/uL (4.0-10.0)
[2021-02-03 14:28] LABS: INR 0.98 (0.8-1.2)
[2021-02-03 14:30] LABS: Fibrinogen 468 mg/dL (174-498); Lactic Sepsis W/Reflex 2.5 mmol/L (0.5-2.2); Partial Thromboplastin Time 31.6 SECONDS (23.9-36.7)
[2021-02-03 14:32] LABS: Troponin T (5th) Once 6 ng/L (0-10)
[2021-02-03 14:33] LABS: D Dimer 0.45 ug/mIFEU (0-0.59)
[2021-02-03 14:39] LABS: Procalcitonin 0.18 ng/mL (0-0.5)
[2021-02-03 14:50] LABS: Alanine Aminotransferase 9 U/L (0-33); Albumin Level 3.9 g/dL (3.5-5.2); Alkaline Phosphatase 45 IU/L (35-105); Aspartate Amino Transferase 14 U/L (0-32); Blood Urea Nitrogen 13 mg/dL (6-20); C Reactive Protein 42.2 mg/L (0.0-4.9); Calcium 8.5 mg/dL (8.5-10.5); Carbon Dioxide 17 mmol/L (22-29); Chloride 96 mmol/L (98-107); Glomerular Filtration Rate 98.9 mL/min (90-130); Glucose 87 mg/dL (65-115); Osmolality Calculated 279 mOsm/kg (285-295); Sodium 135 mmol/L (136-145); Total Bilirubin 0.5 mg/dL (0.15-1.2); Total Protein 6.9 g/dL (6.6-8.7)
[2021-02-03 14:52] LABS: Anion Gap 25.6 (5-19); Lactate Dehydrogenase 180 U/L (135-214); Potassium 3.6 mmol/L (3.5-5.1)
[2021-02-03 15:48] LABS: Reflex Lactate Order REFLEX LACTIC ORDERD
[2021-02-03 16:10] LABS: Lactate (Lactic Acid level) 1.2 mmol/L (0.5-2.2)
[2021-02-03 16:59] VITALS: BP 111/76; PULSE 86; RESP 20; O2SAT 99
== END 2021-02-03 16:59 | disposition home or self-care (01) ==
LOC: ER 13:19
PROVIDERS: Emergency Provider Emergency Medicine
DX: R05.9 Cough, unspecified (principal); R06.00 Dyspnea, unspecified
CPT/HCPCS: 36415; 71045; 80053; 83605; 83615; 84145; 84484; 84702; 85025; 85378; 85384; 85610; 85730; 86140; 94640; 96374; 99283; J1100; J3535

== ENCOUNTER 2021-06-25 13:17 | Emergency (ER) | payer MEDICAID, SELFPAY ==
[2021-06-25 13:20] VITALS: BP 130/75; PULSE 94; RESP 21; TEMP 36.8; O2SAT 97; BMI 23.6
--- NOTE | 2021-06-25 13:41 | W.ED.GENADLT ---
HPI - General Adult General: Chief complaint: General Medical Stated complaint: DIZZY; TINGLING IN ARMS AND LEGS Time Seen by Provider: 06/25/21 13:21 History of Present Illness: Patient is a 30-year-old female who was previously on Pristiq for depression presenting to emergency room after patient's insurance will not cover Pristiq and patient has not been taking medicine for the last 4 to 5 days with complaints of right facial tingling. Patient said that she has had intermittent episodes of tingling is worse with positions since yesterday night. Patient tells me that she is in the process of switching her insurance and trying to get the [facility] to cover her Pristiq. Patient has no other focal complaints including chest pain, shortness breath, palpitation, lightheadedness, nausea/vomiting, diarrhea, melena/seizure, urinary complaints or other complaints at this time. Onset: 2 days ago Duration: 2 days Location:home Severity:moderate Associated symptoms: Deny chest pain, dyspnea, nausea, rash, palpitations or vomiting Review of Systems Const: Denies: fever(s) or chills Eyes: Denies: change in vision ENMT: Denies: mouth pain Card: Denies: chest pain or palpitations Resp: Denies: dyspnea or non-productive cough GI: Denies: abdominal pain, nausea, vomiting or diarrhea : Denies: dysuria Musc: Denies: extremity pain Skin/Breast: Denies: rash or new lesions Neuro: Reports: other (+facical paresthesia); Denies: weakness in extremities Psych: Reports: other (Normal mood) Brian/Lymph: Denies: easy bruising PFS ED PFSH: Medical History (Updated 06/25/21 @ 13:40 by Loulou Norris MD) Chronic posttraumatic stress disorder Depression Social History (Updated 06/25/21 @ 13:43 by Loulou Norris MD) Smoking and tobacco status: current every day smoker Alcohol intake: never Substance/Drug Use: never Physical Exam Const: COMMON NORMALS: alert HENMT: COMMON NORMALS: atraumatic HEAD & SCALP: atraumatic MOUTH: moist mucous membranes not abnormal Eye: COMMON NORMALS: EOMs intact bilaterally and conjunctivae normal CONJUNCTIVA: Yes conjunctivae normal Neck/C-Spine: COMMON NORMALS: full ROM and supple Resp: COMMON NORMALS: normal respiratory effort and clear to auscultation bilaterally AUSCULTATION: clear to auscultation bilaterally Cardio: COMMON NORMALS: regular rate RATE: regular rate GI: COMMON NORMALS: Soft to palpation and non-tender PALPATION: Yes Soft to palpation Extremity: COMMON NORMALS: full ROM Neuro: SENSORIUM/ORIENTATION: Yes alert MOTOR EXAM: No Abnormal motor strength present and Other motor observations present (no focal motor deficits) OTHER: Mental status? Awake, alert, and oriented to self, year, month, location, and situation.? Following simple axial and appendicular commands.? Has appropriate fund of knowledge, comprehension, and insight.? Able to recall and understands pertinent aspects of medical history and current treatment status.? ? Language? Speech is fluent without word-finding difficulties.? Intact naming, expression, human resources receptionist, and repetition.? ? Cranial nerves? 2,3,4,6: PERRL, EOMI with no nystagmus. 5: Intact sensation to light touch, symmetric? 7: Smile symmetrical, no facial droop.? 8: Hearing grossly intact.? 9,10: Normal palate movement.? 11: Normal strength in trapezius bilaterally 12: Tongue protrudes midline.? ? Motor examination? Normal bulk & tone. Strength as follows (R/L): Delts (5/5), Biceps (5/5), Triceps (5/5), Wrist ext (5/5), hip flexors (5/5), plantarflexors (5/5), dorsiflexors (5/5). ? Sensation? Light Touch: Grossly intact and equal in upper and lower extremities bilaterally? Romberg: Negative.? Distal joint position sense intact ? Coordination? [id number]-finger movements intact without dysmetria or past-pointing.? Rapid fingertaps: preserved amplitude without decriment.? No tremor, myoclonus or truncal ataxia.? ? Gait/stance? Steady, normal narrow base gait with appropriate arm swing and turning.? Tandem gait without hesitation or loss of balance. Psych: COMMON NORMALS: speech normal SPEECH: Yes normal speech MOOD & AFFECT: Yes euthymic mood Course Vital Signs: Vital signs: Vital Signs Temperature 98.7 F 06/25/21 15:23 Pulse Rate 87 06/25/21 15:23 Respiratory Rate 14 06/25/21 15:23 Blood Pressure 117/76 06/25/21 15:23 Pulse Oximetry 99 06/25/21 15:23 MDM - General Adult Medical Decision Making 30-year-old female presenting to the emergency room after she has not been able to take Pristiq for the last 4 days. Patient presents with 2 days of paresthesia over the left face. Exam is completely intact including cranial nerves. Patient received 1 dose of Pristiq in the ER and reports symptomatic improvement. Patient reassures me that she will fill her medications in the next few days after sorting out her insurance situations. Patient is given 6 tablets of pristiq to go home with until she is followed by [facility] clinic. I have given patient follow up with our machine adjuster leader case trim to be seen by our outpatient [facility] for medication adjustment and refill. Patient aware of a call from our machine adjuster leader case trim to schedule for appointment(s) and verbalizes understanding of the importance of following up. Disposition: Discharge. Patient counseled regarding diagnostic impression, treatment plan. Patient given ED strict return precautions to return for continuation, worsening, or development of new symptoms. Instructed to f/u w/ PCP and [facility] regarding symptoms today. Patient verbalized understanding. Discharge Plan Discharge Patient Disposition: Home Clinical Impression: Drug withdrawal Condition: Stable Prescriptions: No Action Pristiq 100 mg tablet extended release 24 hr 100 mg PO DAILY 30 Days Qty: 30 1RF Ambien 10 mg tablet 10 mg PO BEDTIME 30 Days Qty: 30 1RF clonazepam 0.5 mg tablet 0.5 mg PO DAILY Qty: 30 1RF propranolol 20 mg tablet 20 mg PO TID Qty: 90 1RF Discharge Orders: Discharge ED (Routine); Ordered 06/25/21 Ordered By: Loulou Norris Discharge Diet: Advance as tolerated Discharge Activity: Increase activity as tolerated Patient Instructions: Paresthesia (ED) Activity Restrictions/Additional Instructions: Please come back to the emergency room if you need help, have any hallucinations, or you have any depression or have thoughts about hurting yourself or other people. Our machine adjuster leader case trim will have you follow-up with [facility] in the next few days. You would be expected to have a phone call with our machine adjuster leader case trim who will put you on the schedule. You can expect a call from us in the next 2-3 days. If you don't hear from us, call us back in the emergency room at [phone]. Coding Level of Care Code ED Traveling Construction Superintendent for Chg Fwd Exam Comprehensive
[2021-06-25] MEDS: desvenlafaxine 50 mg Tablet 100 MG PO (14:00)
[2021-06-25] MEDS: desvenlafaxine 50 mg Tablet 600 MG PO (14:45)
[2021-06-25 14:51] VITALS: BP 112/79; PULSE 82; RESP 14; TEMP 36.6; O2SAT 93
[2021-06-25 15:23] VITALS: BP 117/76; PULSE 87; RESP 14; TEMP 37.1; O2SAT 99
--- NOTE | 2021-06-28 12:05 | DCPLANNER ---
health information manager had message to speak with patient about [facility] - pillowcase cutter called [phone], unable to speak with patient and unable to leave a voicemail for patient.
== END 2021-06-25 15:20 | disposition home or self-care (01) ==
PROVIDERS: Emergency Provider Emergency Medicine
DX: F19.239 Other psychoactive substance dependence with withdrawal, unspecified (principal); F17.210 Nicotine dependence, cigarettes, uncomplicated
CPT/HCPCS: 99283

== ENCOUNTER 2022-01-10 09:54 | Emergency (ER) | payer MEDICAID, SELFPAY ==
[2022-01-10] VITALS (8 sets, daily range): BP systolic 111–138; BP diastolic 73–83; PULSE 79–97; RESP 16–19; TEMP 36.2; O2SAT 96–99; BMI 26.6
[2022-01-10 10:42] LABS: Basophils % 0.5 %; Eosinophils # 0.2 10^3/uL (0.0-0.8); Eosinophils % 3.3 %; Hematocrit 42.2 % (37.0-47.0); Hemoglobin 14.6 g/dL (11.5-15.3); Lymphocytes # 1.6 10^3/uL (0.8-4.8); Lymphocytes % 24.9 %; Mean Corpuscular HGB Conc 34.6 g/dL (30.0-36.0); Mean Corpuscular Hemoglobin 31.1 pg (28.0-34.0); Mean Platelet Volume 11.1 fL (7.4-10.4); Monocytes # 0.4 10^3/uL (0.2-0.9); Monocytes % 5.4 %; Neutrophils # 4.24 10^3/uL (1.8-7.7); Neutrophils % 65.6 %; Nucleated Red Blood Cells % 0 %; Platelet Count 276 10^3/cmm (130-400); Red Blood Count 4.69 10^6/uL (4.1-5.3); Red Cell Distribution Width 11.9 % (12.1-15.1); White Blood Count 6.5 10^3/uL (4.0-10.0)
[2022-01-10 10:56] LABS: Blood Urea Nitrogen 6 mg/dL (6-20); Calcium 8.9 mg/dL (8.5-10.5); Carbon Dioxide 23 mmol/L (22-29); Chloride 102 mmol/L (98-107); Glomerular Filtration Rate 98.3 mL/min (90-130); Glucose 98 mg/dL (65-115); HCG, Serum Qual Negative (Negative); Osmolality Calculated 280 mOsm/kg (285-295); Sodium 136 mmol/L (136-145)
--- NOTE | 2022-01-10 11:05 | PC.PHAR ---
pt states she takes care of her own medications-pt states she just ran out of her medications about 2 days ago-pt states she still takes propranolol 20mg tid ext med history shows last filled 10/16/21 30d/s-pt had an advair and ventolin inhaler filled in mar 2021 pt states she no longer has -notes are made in the pharmacy comments with last fill dates
[2022-01-10 11:16] LABS: Bilirubin Urine Neg (Negative); Blood Urine 3+ (Negative); Glucose Urine UA Norm (Normal); Ketones Urine Negative (Negative); Nitrate Urine Negative (Negative); Protein Urine 1+ (Negative); Specific Gravity, Urine 1.015 (1.005-1.030); Urine Appearance Hazy (CLEAR); Urine Color Orange (Yellow); Urobilinogen Urine Norm (Negative); pH Urine 5 (5-7)
[2022-01-10 11:17] LABS: Add Urine Culture? Yes; Add Urine Microscopic? YES; Bacteria Urine 2+ /hpf; Leukocyte Esterase Urine 1+ (Negative); RBC Urine TOO NUMEROUS TO CNT /hpf (0-2); WBC Urine 15-25 /hpf (0-5)
[2022-01-10] MEDS: ondansetron 2 mg/ML SDV 2 mL 4 MG IVP (11:17)
[2022-01-10] MEDS: morphine 4 mg/mL SDV 1 mL IVP (11:17)
--- NOTE | 2022-01-10 11:18 | CT_ITS ---
WS: [id number] CT ABDOMEN AND PELVIS NONCONTRAST HISTORY: flank pain TECHNIQUE: Imaging performed through the abdomen and pelvis. Coronal and sagittal reformats are submi tted. All CT scans at [facility] use at least one of these dose optimization techniques: auto mated exposure control; mA and/or kV adjustment per patient size (includes targeted exams where dose is matched to clinical indication); or iterative reconstruction. DLP: 601.54 mGy.cm COMPARISON: None available. Lower thorax: Lung bases are clear. Visualized heart is normal. No hiatal hernia. Liver: Normal size liver. No mass or bile duct dilatation. Gallbladder: Normal gallbladder. Pancreas: Normal size and attenuation. Normal pancreatic duct. No pancreatitis or mass. Spleen: Normal. Adrenal glands: Normal. No mass. Right kidney: Normal size kidney with no mass or hydronephrosis. Left kidney: Normal size kidney with no mass or hydronephrosis. Aorta: Normal abdominal aorta, no aneurysm or atherosclerosis. No free fluid, intraperitoneal air or significant lymphadenopathy. GI tract: Normal appendix. Stomach is not distended. No small bowel obstruction. There is significant diffuse constipation and fecal retention throughout the entire colon. No obstruction. Abdominal wall: Small umbilical hernia contains fat only. Pelvis: Urinary bladder is well distended. Normal size anteverted uterus. No free fluid. The ovaries are identified and normal size. Osseous structures: Unremarkable. CT/CT kidney stone [id number] IMPRESSION: 1. No acute abdominal or pelvic abnormalities. 2. No renal obstruction or ureteral obstruction or calcifications. 3. Diffuse moderate constipation. 4. Normal appendix.
--- NOTE | 2022-01-10 11:18 | W.ED.FEMALGU ---
HPI - Female Genitourinary General: Chief complaint: Urogenital-Female Stated complaint: peeing blood Time Seen by Provider: 01/10/22 10:09 Source: patient Mode of arrival: ambulatory History of Present Illness: 31-year-old female presents emergency complaining hematuria and bilateral flank pain for the last couple of days beginning progressively worse she has not had any vomiting. She does have significant dysuria. No fever sweats or chills. She has a history of kidney stones states this feels different than when she has had before. MD elicited complaint: dysuria Pertinent past history: other (Nephrolithiasis) Onset (ago): day(s) Location of symptoms: flank (Bilateral) Severity: moderate Quality of pain: sharp Consistency: constant Vaginal discharge: none Vaginal bleeding: none Urinary symptoms: Dysuria and Flank Pain Exacerbating factors: urination Relieving factors: none Associated symptoms: Reports nausea; Deny abdominal pain, short of breath, fevers/chills, headache(s), rash, seizures, syncope, vaginal bleeding, vaginal discharge or weakness Treatment prior to arrival: none Date of Last Menstrual Period: 11/26/21 Review of Systems Const: Denies: fever(s), chills, body aches, change in appetite, fatigue or malaise ENMT: Denies: throat pain, ear or mastoid pain, nasal discharge or nasal congestion Card: Denies: syncope Resp: Denies: dyspnea, productive cough or non-productive cough GI: Reports: nausea; Denies: abdominal pain : Denies: vaginal discharge Skin/Breast: Denies: rash or pruritus Neuro: Denies: headache(s) PFSH ED PFSH: Medical History Chronic posttraumatic stress disorder Depression Social History Smoking and tobacco status: current every day smoker Alcohol intake: never Female Reproductive History: Date of last menstrual period: 11/26/21 Physical Exam Const: COMMON NORMALS: no acute distress GENERAL APPEARANCE: cooperative and comfortable ORIENTATION/CONSCIOUSNESS: Yes awake, Yes oriented to person, Yes oriented to place and Yes oriented to time HENMT: COMMON NORMALS: normocephalic, atraumatic and hearing grossly normal bilaterally HEAD & SCALP: normocephalic and atraumatic Resp: COMMON NORMALS: normal respiratory effort, No retractions, No use of accessory muscles and clear to auscultation bilaterally AUSCULTATION: clear to auscultation bilaterally Cardio: COMMON NORMALS: regular rate, regular rhythm and No murmurs present (Cardio) RATE: regular rate RHYTHM: regular rhythm GI: COMMON NORMALS: Soft to palpation and No hepatosplenomegaly present AUSCULTATION: Yes normoactive bowel sounds PALPATION: Yes Soft to palpation, No Tenderness to palpation present (GI), No Guarding due to palpation present (GI) and Yes No hepatosplenomegaly present : BLADDER/KIDNEY EXAM: Yes CVA tenderness SPECULUM EXAM - VAGINA: No vaginal bleeding OB/EXTERNAL & SPECULUM: No vaginal bleeding Back/Pelvis: GENERAL BACK: Yes CVA tenderness CVA tenderness: bilateral Extremity: COMMON NORMALS: normal to inspection, capillary refill normal, no clubbing, cyanosis or edema, no calf tenderness and no pedal edema Neuro: SENSORIUM/ORIENTATION: Yes oriented to person, Yes oriented to place and Yes oriented to time Skin: COMMON NORMALS: no rashes or lesions noted GENERAL SKIN EXAM: no rashes or lesions noted Course Vital Signs: Vital signs: Vital Signs Temperature 97.2 F L 01/10/22 09:59 Pulse Rate 79 01/10/22 13:52 Respiratory Rate 18 01/10/22 13:52 Blood Pressure 138/78 01/10/22 13:52 Pulse Oximetry 98 01/10/22 13:52 Oxygen Delivery Me thod 01/10/22 13:26 MDM - Female Medical Decision Making Pyelonephritis no stones on CT start antibiotics Medical Records I reviewed the patient's medical records. Lab Data I reviewed the patient's lab results. : 01/10/22 10:34 01/10/22 10:34 Radiology Impressions Abdomen/Pelvis CT 01/10/22 11:18 IMPRESSION: 1. No acute abdominal or pelvic abnormalities. 2. No renal obstruction or ureteral obstruction or calcifications. 3. Diffuse moderate constipation. 4. Normal appendix. Laboratory Results WBC 6.5 10^3/uL (4.0-10.0) 01/10/22 10:34 RBC 4.69 10^6/uL (4.1-5.3) 01/10/22 10:34 Hgb 14.6 g/dL (11.5-15.3) 01/10/22 10:34 Hct 42.2 % (37.0-47.0) 01/10/22 10:34 MCV 90.0 fl (81-99) 01/10/22 10:34 MCH 31.1 pg (28.0-34.0) 01/10/22 10:34 MCHC 34.6 g/dL (30.0-36.0) 01/10/22 10:34 RDW 11.9 % (12.1-15.1) L 01/10/22 10:34 Plt Count 276 10^3/cmm (130-400) 01/10/22 10:34 MPV 11.1 fL (7.4-10.4) H 01/10/22 10:34 Neut % (Auto) 65.6 % 01/10/22 10:34 Lymph % (Auto) 24.9 % 01/10/22 10:34 [place] % (Auto) 5.4 % 01/10/22 10:34 Eos % (Auto) 3.3 % 01/10/22 10:34 Baso % (Auto) 0.5 % 01/10/22 10:34 Neut # (Auto) 4.24 10^3/uL (1.8-7.7) 01/10/22 10:34 Lymph # (Auto) 1.6 10^3/uL (0.8-4.8) 01/10/22 10:34 [place] # (Auto) 0.4 10^3/uL (0.2-0.9) 01/10/22 10:34 Eos # (Auto) 0.2 10^3/uL (0.0-0.8) 01/10/22 10:34 Baso # (Auto) 0.0 10^3/uL (0.0-0.1) 01/10/22 10:34 Nucleated RBC % (auto) 0 % 01/10/22 10:34 Nucleated RBCs # 0.0 /100WBC 01/10/22 10:34 Sodium 136 mmol/L (136-145) 01/10/22 10:34 Potassium 4.0 mmol/L (3.5-5.1) 01/10/22 10:34 Chloride 102 mmol/L (98-107) 01/10/22 10:34 Carbon Dioxide 23 mmol/L (22-29) 01/10/22 10:34 Anion Gap 15.0 (5-19) 01/10/22 10:34 BUN 6 mg/dL (6-20) 01/10/22 10:34 Creatinine 0.7 mg/dL (0.5-0.9) 01/10/22 10:34 GFR Calculation 98.3 mL/min (90-130) 01/10/22 10:34 Glucose 98 mg/dL (65-115) 01/10/22 10:34 Calculated Osmolality 280 mOsm/kg (285-295) L 01/10/22 10:34 Calcium 8.9 mg/dL (8.5-10.5) 01/10/22 10:34 HCG, Qual Negative (Negative) 01/10/22 10:34 Urine Color Yellow (Yellow) 01/10/22 12:55 Urine Appearance Clear (CLEAR) 01/10/22 12:55 Urine pH 5 (5-7) 01/10/22 12:55 Ur Specific [place] 1.015 (1.005-1.030) 01/10/22 12:55 Urine Protein Neg (Negative) 01/10/22 12:55 Urine Glucose (UA) Norm (Normal) 01/10/22 12:55 Urine Ketones Negative (Negative) 01/10/22 12:55 Urine Blood 3+ (Negative) H 01/10/22 12:55 Urine Nitrate Negative (Negative) 01/10/22 12:55 Urine Bilirubin Neg (Negative) 01/10/22 12:55 Urine Urobilinogen Norm mg/dL (Negative) 01/10/22 12:55 Ur Leukocyte Esterase Negative (Negative) 01/10/22 12:55 Urine RBC Too numerous to cnt /hpf (0-2) H 01/10/22 10:34 Urine WBC 15-25 /hpf (0-5) H 01/10/22 10:34 Ur Squamous Epith Cells 5-10 /hpf (0-5) H 01/10/22 10:34 Amorphous Sediment Not Reportable 01/10/22 10:34 Urine Bacteria 2+ /hpf (NONE) H 01/10/22 10:34 Discharge Plan Discharge Patient Disposition: Home Clinical Impression: Pyelonephritis Condition: Stable Prescriptions: New ciprofloxacin HCl 500 mg tablet 500 mg PO BID Qty: 14 0RF tramadol 50 mg tablet 50 mg PO Q6H PRN (Reason: pain) Qty: 7 0RF No Action clonazepam 0.5 mg tablet 0.5 mg PO DAILY Qty: 30 0RF propranolol 20 mg tablet 20 mg PO TID Qty: 90 0RF Ambien 10 mg tablet 10 mg PO BEDTIME 30 Days Qty: 30 0RF Pristiq 50 mg tablet extended release 24 hr 50 mg PO QAM Pristiq 100 mg tablet extended release 24 hr 100 mg PO QAM Discharge Orders: Discharge ED (Routine); Ordered 01/10/22 Ordered By: Eamon Trinidad Discharge Diet: Usual diet Discharge Activity: Increase activity as tolerated Patient Instructions: Opioid Safety, Pain Management, Pyelonephritis Activity Restrictions/Additional Instructions: If not improving call your primary care doctor if worsens return to the emergency room. Coding Level of Care Code ED [employer] for Scarlett Garcia Exam Problem Focused
[2022-01-10] MEDS: cefTRIAXone 1,000 MG in sodium chloride 0.9% (plus) 50 ML 100 MG IV (13:19)
[2022-01-10] MEDS: morphine 4 mg/mL SDV 1 mL 2 MG IVP (13:28)
[2022-01-10 13:40] LABS: Charge for UA Resulting for Rev
[2022-01-10 14:37] LABS: Add Urine Microscopic? YES; Bilirubin Urine Neg (Negative); Blood Urine 3+ (Negative); Glucose Urine UA Norm (Normal); Ketones Urine Negative (Negative); Leukocyte Esterase Urine Negative (Negative); Nitrate Urine Negative (Negative); Protein Urine Neg (Negative); Specific Gravity, Urine 1.015 (1.005-1.030); Urine Appearance Clear (CLEAR); Urine Color Yellow (Yellow); Urobilinogen Urine Norm (Negative); pH Urine 5 (5-7)
== END 2022-01-10 13:59 | disposition home or self-care (01) ==
PROVIDERS: Emergency Provider Family Medicine
DX: N12 Tubulo-interstitial nephritis, not specified as acute or chronic (principal); F17.200 Nicotine dependence, unspecified, uncomplicated; Z87.442 Personal history of urinary calculi
CPT/HCPCS: 51701; 74176; 80048; 81001; 81003; 84703; 85025; 87086; 96365; 96375; 96376; 99284; J0696; J2270; J2405

== ENCOUNTER 2022-02-25 15:14 | Emergency (ER) | payer MEDICAID, SELFPAY ==
[2022-02-25 15:20] VITALS: PULSE 128; RESP 18
--- NOTE | 2022-02-25 15:35 | ED.C_ITS ---
Documented by User: BHARATH Davey 02/26/22 01:13 HPI - Psych General: Chief Complaint: Psychiatric Symptoms Stated Complaint: PSYCH EVAL Time Seen by Provider: 02/25/22 15:19 History of Present Illness: Patient is a 31-year-old female who comes to the ED via EMS for psych eval. EMS was called out to the house for a wellbeing check. Patient was unable to answer simple questions, such as what is her daughter's name. Patient was babbling nonsense per EMS. EMS gave patient IM Haldol while in route. Here in the ED, patient is alert and oriented x3 and she is able answer all my questions accordingly. She states that she took 2 pills and she is unsure what they were but was taking them to help her sleep. Denies taking unknown med to overdose or harm herself. Police is with patient as well and they are filling out affidavits stating that when they saw patient at the house, her mental condition put herself and daughter at risk and she poses a risk of harm to herself. Review of Systems Const: Denies: fever(s), chills or fatigue Eyes: Denies: change in vision or eye discomfort ENMT: Denies: throat pain, odynophagia, nasal discharge or nasal congestion Card: Denies: chest pain, palpitations, edema, swelling of feet/ankles, dyspnea on exertion or orthopnea Resp: Denies: dyspnea, productive cough or non-productive cough GI: Denies: abdominal pain, nausea, vomiting, diarrhea, constipation or hematochezia : Denies: flank pain, dysuria or hematuria Musc: Denies: neck pain, back pain or extremity swelling Skin/Breast: Denies: rash or new lesions Neuro: Denies: headache(s), numbness in extremities or weakness in extremities Psych: Reports: other (Altered mental status) ON LICENSE OF [facility] ED PFSH: Medical History Chronic posttraumatic stress disorder Depression Social History Smoking and tobacco status: current every day smoker Alcohol intake: never Female Reproductive History: Date of last menstrual period: 11/26/21 Physical Exam Narrative: EXAM NARRATIVE: Patient was alert and oriented x3 and answering all my questions accordingly. History and physical exam. Const: COMMON NORMALS: no acute distress, patient oriented x3 and alert HENMT: COMMON NORMALS: normocephalic HEAD & SCALP: normocephalic MOUTH: Normal oral and palatal mucosa present THROAT: posterior oropharynx normal and uvula midline Eye: COMMON NORMALS: Equal, round and reactive pupils present and conjunctivae normal CONJUNCTIVA: Yes conjunctivae normal PUPIL: Yes Equal, round and reactive pupils present Neck/C-Spine: COMMON NORMALS: supple GENERAL: Yes normal visual inspection Resp: COMMON NORMALS: normal respiratory effort, No retractions, No use of accessory muscles and clear to auscultation bilaterally AUSCULTATION: clear to auscultation bilaterally Cardio: COMMON NORMALS: regular rate, regular rhythm, S1 normal heart sound present, S2 normal heart sound present, No gallops present (Cardio), No clicks present (Cardio), No murmurs present (Cardio) and Peripheral pulses 2+ throughout RATE: regular rate RHYTHM: regular rhythm HEART SOUNDS: S1 normal heart sound present and S2 normal heart sound present PERIPHERAL PULSES: Peripheral pulses 2+ throughout GI: COMMON NORMALS: Normal to inspection, nondistended, normoactive bowel sounds present, Soft to palpation, non-tender and no masses PALPATION: Yes Soft to palpation : COMMON NORMALS: Yes no CVA tenderness BLADDER/KIDNEY EXAM: Yes no CVA tenderness Back/Pelvis: COMMON NORMALS: no CVA tenderness Extremity: COMMON NORMALS: normal to inspection Neuro: COMMON NORMALS: patient oriented x3 SENSORIUM/ORIENTATION: Yes alert GAIT: Yes Normal gait present Skin: GENERAL SKIN EXAM: dry skin Course Vital Signs: Vital signs: Vital Signs Pulse Rate 66 02/26/22 06:49 Respiratory Rate 16 02/26/22 06:49 Blood Pressure 116/69 02/26/22 06:49 Pulse Oximetry 96 02/26/22 06:49 Oxygen Delivery Me thod 02/26/22 06:49 MDM - Psych Medical Decision Making Patient is a 31-year-old female who is brought into the ED via EMS for a psych eval. someone called police and EMS found to do welfare check on patient. Police state that she was acting odd and babbling nonsense and seemed out of it. They thought she was unsafe to take care of herself for her 5-year-old daughter and brought her here to the ED for evaluation and filled out affidavits for 96- hour hold. Nurses currently calling outside [facility] facilities for transfer. Lab Data I reviewed the patient's lab results. : 02/25/22 15:50 02/25/22 15:50 Laboratory Results WBC 4.3 10^3/uL (4.0-10.0) 02/25/22 15:50 RBC 3.93 10^6/uL (4.1-5.3) L 02/25/22 15:50 Hgb 12.3 g/dL (11.5-15.3) 02/25/22 15:50 Hct 36.6 % (37.0-47.0) L 02/25/22 15:50 MCV 93.1 fl (81-99) 02/25/22 15:50 MCH 31.3 pg (28.0-34.0) 02/25/22 15:50 MCHC 33.6 g/dL (30.0-36.0) 02/25/22 15:50 RDW 12.0 % (12.1-15.1) L 02/25/22 15:50 Plt Count 227 10^3/cmm (130-400) 02/25/22 15:50 MPV 10.9 fL (7.4-10.4) H 02/25/22 15:50 Neut % (Auto) 43.0 % 02/25/22 15:50 Lymph % (Auto) 46.6 % 02/25/22 15:50 Edmunds % (Auto) 5.3 % 02/25/22 15:50 Eos % (Auto) 4.6 % 02/25/22 15:50 Baso % (Auto) 0.5 % 02/25/22 15:50 Neut # (Auto) 1.85 10^3/uL (1.8-7.7) 02/25/22 15:50 Lymph # (Auto) 2.0 10^3/uL (0.8-4.8) 02/25/22 15:50 Edmunds # (Auto) 0.2 10^3/uL (0.2-0.9) 02/25/22 15:50 Eos # (Auto) 0.2 10^3/uL (0.0-0.8) 02/25/22 15:50 Baso # (Auto) 0.0 10^3/uL (0.0-0.1) 02/25/22 15:50 Nucleated RBC % (auto) 0 % 02/25/22 15:50 Nucleated RBCs # 0.0 /100WBC 02/25/22 15:50 Sodium 139 mmol/L (136-145) 02/25/22 15:50 Potassium 3.6 mmol/L (3.5-5.1) 02/25/22 15:50 Chloride 105 mmol/L (98-107) 02/25/22 15:50 Carbon Dioxide 23 mmol/L (22-29) 02/25/22 15:50 Anion Gap 14.6 (5-19) 02/25/22 15:50 BUN 8 mg/dL (6-20) 02/25/22 15:50 Creatinine 0.7 mg/dL (0.5-0.9) 02/25/22 15:50 GFR Calculation 98.3 mL/min (90-130) 02/25/22 15:50 Glucose 85 mg/dL (65-115) 02/25/22 15:50 Calculated Osmolality 286 mOsm/kg (285-295) 02/25/22 15:50 Calcium 8.7 mg/dL (8.5-10.5) 02/25/22 15:50 Total Bilirubin 0.2 mg/dL (0.15-1.2) 02/25/22 15:50 AST 11 U/L (0-32) 02/25/22 15:50 ALT 7 U/L (0-33) 02/25/22 15:50 Alkaline Phosphatase 51 U/L (35-105) 02/25/22 15:50 Total Protein 6.2 g/dL (6.6-8.7) L 02/25/22 15:50 Albumin 3.9 g/dL (3.5-5.2) 02/25/22 15:50 Globulin 2.3 g/dL (1.3-4.6) 02/25/22 15:50 TSH 1.13 uIU/mL (0.27-4.20) 02/25/22 15:50 HCG, Qual Negative (Negative) 02/25/22 15:50 Urine Color Lor (Yellow) 02/25/22 12:01 Urine Appearance Hazy (CLEAR) A 02/25/22 12:01 Urine pH 6 (5-7) 02/25/22 12:01 Ur Specific [place] 1.020 (1.005-1.030) 02/25/22 12:01 Urine Protein Trace (Negative) 02/25/22 12:01 Urine Glucose (UA) Norm (Normal) 02/25/22 12:01 Urine Ketones 2+ (Negative) H 02/25/22 12:01 Urine Blood Neg (Negative) 02/25/22 12:01 Urine Nitrate Negative (Negative) 02/25/22 12:01 Urine Bilirubin Neg (Negative) 02/25/22 12:01 Urine Urobilinogen Norm mg/dL (Negative) 02/25/22 12:01 Ur Leukocyte Esterase Trace (Negative) H 02/25/22 12:01 Urine RBC 0-4 /hpf (0-2) H 02/25/22 12:01 Urine WBC None /hpf (0-5) 02/25/22 12:01 Ur Squamous Epith Cells 0-4 /hpf (0-5) H 02/25/22 12:01 Amorphous Sediment Not Reportable 02/25/22 12:01 Urine Bacteria Trace /hpf (NONE) 02/25/22 12:01 Salicylates < 0.3 mg/dL (3-10) L 02/25/22 15:50 Urine Opiates Screen Negative ng/mL (Negative) 02/25/22 12:01 Acetaminophen < 5.0 ug/mL (10-30) L 02/25/22 15:50 Ur Barbiturates Screen Negative ng/mL (Negative) 02/25/22 12:01 Ur Phencyclidine Scrn Negative ng/mL (Negative) 02/25/22 12:01 Ur Amphetamines Screen Negative ng/mL (Negative) 02/25/22 12:01 U Benzodiazepines Scrn Negative ng/mL (Negative) 02/25/22 12:01 Urine Cocaine Screen Negative ng/mL (Negative) 02/25/22 12:01 U Marijuana (THC) Screen Positive ng/mL (Negative) H 02/25/22 12:01 Ethyl Alcohol < 10 mg/dL (0-10) 02/25/22 15:50 SARS-CoV-2 Ag (Rapid) negative (Negative) 02/25/22 18:58 Discharge Plan Discharge Patient Disposition: [facility] Clinical Impression: Acute psychosis, PTSD (post-traumatic stress disorder), Depression Condition: Stable Sign Out Sign Out Data: Patient Sign Out occurred on 02/26/22 at 07:08. Patient's care was discussed, and care was transferred from to Eamon Trinidad DO. Coding Level of Care Code ED Communications Representative for Chg Fwd Exam Comprehensive Documented by User: Suraj Paige DO 02/26/22 04:19 HPI - Psych General: Chief Complaint: Psychiatric Symptoms Stated Complaint: PSYCH EVAL Time Seen by Provider: 02/25/22 15:19 ON LICENSE OF [facility] ED PFSH: Medical History Chronic posttraumatic stress disorder Depression Social History Smoking and tobacco status: current every day smoker Alcohol intake: never Course Vital Signs: Vital signs: Vital Signs Pulse Rate 66 02/26/22 06:49 Respiratory Rate 16 02/26/22 06:49 Blood Pressure 116/69 02/26/22 06:49 Pulse Oximetry 96 02/26/22 06:49 Oxygen Delivery Me thod 02/26/22 06:49 MDM - Psych Medical Decision Making Patient is a 31-year-old female who is brought into the ED via EMS for a psych eval. someone called police and EMS found to do welfare check on patient. Police state that she was acting odd and babbling nonsense and seemed out of it. They thought she was unsafe to take care of herself for her 5-year-old daughter and brought her here to the ED for evaluation and filled out affidavits for 96- hour hold. Nurses currently calling outside psych facilities for transfer. 31-year-old female checked out to me at shift change by Mr. Larisa PA-C. This lady remains medically stable. Her vitals are good. No intervention has been needed at this point. Information has been faxed to other facilities, as we have no neuropsychiatric beds available at this facility. Her urinalysis and urine drug screen are pending as well. She will be checked out to the oncoming physician at shift change. Lab Data : 02/25/22 15:50 02/25/22 15:50 Laboratory Results WBC 4.3 10^3/uL (4.0-10.0) 02/25/22 15:50 RBC 3.93 10^6/uL (4.1-5.3) L 02/25/22 15:50 Hgb 12.3 g/dL (11.5-15.3) 02/25/22 15:50 Hct 36.6 % (37.0-47.0) L 02/25/22 15:50 MCV 93.1 fl (81-99) 02/25/22 15:50 MCH 31.3 pg (28.0-34.0) 02/25/22 15:50 MCHC 33.6 g/dL (30.0-36.0) 02/25/22 15:50 RDW 12.0 % (12.1-15.1) L 02/25/22 15:50 Plt Count 227 10^3/cmm (130-400) 02/25/22 15:50 MPV 10.9 fL (7.4-10.4) H 02/25/22 15:50 Neut % (Auto) 43.0 % 02/25/22 15:50 Lymph % (Auto) 46.6 % 02/25/22 15:50 Edmunds % (Auto) 5.3 % 02/25/22 15:50 Eos % (Auto) 4.6 % 02/25/22 15:50 Baso % (Auto) 0.5 % 02/25/22 15:50 Neut # (Auto) 1.85 10^3/uL (1.8-7.7) 02/25/22 15:50 Lymph # (Auto) 2.0 10^3/uL (0.8-4.8) 02/25/22 15:50 Edmunds # (Auto) 0.2 10^3/uL (0.2-0.9) 02/25/22 15:50 Eos # (Auto) 0.2 10^3/uL (0.0-0.8) 02/25/22 15:50 Baso # (Auto) 0.0 10^3/uL (0.0-0.1) 02/25/22 15:50 Nucleated RBC % (auto) 0 % 02/25/22 15:50 Nucleated RBCs # 0.0 /100WBC 02/25/22 15:50 Sodium 139 mmol/L (136-145) 02/25/22 15:50 Potassium 3.6 mmol/L (3.5-5.1) 02/25/22 15:50 Chloride 105 mmol/L (98-107) 02/25/22 15:50 Carbon Dioxide 23 mmol/L (22-29) 02/25/22 15:50 Anion Gap 14.6 (5-19) 02/25/22 15:50 BUN 8 mg/dL (6-20) 02/25/22 15:50 Creatinine 0.7 mg/dL (0.5-0.9) 02/25/22 15:50 GFR Calculation 98.3 mL/min (90-130) 02/25/22 15:50 Glucose 85 mg/dL (65-115) 02/25/22 15:50 Calculated Osmolality 286 mOsm/kg (285-295) 02/25/22 15:50 Calcium 8.7 mg/dL (8.5-10.5) 02/25/22 15:50 Total Bilirubin 0.2 mg/dL (0.15-1.2) 02/25/22 15:50 AST 11 U/L (0-32) 02/25/22 15:50 ALT 7 U/L (0-33) 02/25/22 15:50 Alkaline Phosphatase 51 U/L (35-105) 02/25/22 15:50 Total Protein 6.2 g/dL (6.6-8.7) L 02/25/22 15:50 Albumin 3.9 g/dL (3.5-5.2) 02/25/22 15:50 Globulin 2.3 g/dL (1.3-4.6) 02/25/22 15:50 TSH 1.13 uIU/mL (0.27-4.20) 02/25/22 15:50 HCG, Qual Negative (Negative) 02/25/22 15:50 Urine Color Lor (Yellow) 02/25/22 12:01 Urine Appearance Hazy (CLEAR) A 02/25/22 12:01 Urine pH 6 (5-7) 02/25/22 12:01 Ur Specific [place] 1.020 (1.005-1.030) 02/25/22 12:01 Urine Protein Trace (Negative) 02/25/22 12:01 Urine Glucose (UA) Norm (Normal) 02/25/22 12:01 Urine Ketones 2+ (Negative) H 02/25/22 12:01 Urine Blood Neg (Negative) 02/25/22 12:01 Urine Nitrate Negative (Negative) 02/25/22 12:01 Urine Bilirubin Neg (Negative) 02/25/22 12:01 Urine Urobilinogen Norm mg/dL (Negative) 02/25/22 12:01 Ur Leukocyte Esterase Trace (Negative) H 02/25/22 12:01 Urine RBC 0-4 /hpf (0-2) H 02/25/22 12:01 Urine WBC None /hpf (0-5) 02/25/22 12:01 Ur Squamous Epith Cells 0-4 /hpf (0-5) H 02/25/22 12:01 Amorphous Sediment Not Reportable 02/25/22 12:01 Urine Bacteria Trace /hpf (NONE) 02/25/22 12:01 Salicylates < 0.3 mg/dL (3-10) L 02/25/22 15:50 Urine Opiates Screen Negative ng/mL (Negative) 02/25/22 12:01 Acetaminophen < 5.0 ug/mL (10-30) L 02/25/22 15:50 Ur Barbiturates Screen Negative ng/mL (Negative) 02/25/22 12:01 Ur Phencyclidine Scrn Negative ng/mL (Negative) 02/25/22 12:01 Ur Amphetamines Screen Negative ng/mL (Negative) 02/25/22 12:01 U Benzodiazepines Scrn Negative ng/mL (Negative) 02/25/22 12:01 Urine Cocaine Screen Negative ng/mL (Negative) 02/25/22 12:01 U Marijuana (THC) Screen Positive ng/mL (Negative) H 02/25/22 12:01 Ethyl Alcohol < 10 mg/dL (0-10) 02/25/22 15:50 SARS-CoV-2 Ag (Rapid) negative (Negative) 02/25/22 18:58 Discharge Plan Discharge Patient Disposition: [facility] Clinical Impression: Acute psychosis, PTSD (post-traumatic stress disorder), Depression Condition: Stable Sign Out Sign Out Data: Patient Sign Out occurred on 02/26/22 at 07:08. Patient's care was discussed, and care was transferred from to Eamon Trinidad DO. Coding Level of Care Code ED Communications Representative for Chg Fwd Exam Comprehensive Documented by User: Eamon Trinidad DO 02/26/22 17:43 HPI - Psych General: Chief Complaint: Psychiatric Symptoms Stated Complaint: PSYCH EVAL Time Seen by Provider: 02/25/22 15:19 ON LICENSE OF [facility] ED PFSH: Medical History Chronic posttraumatic stress disorder Depression Social History Smoking and tobacco status: current every day smoker Alcohol intake: never Course Vital Signs: Vital signs: Vital Signs Pulse Rate 66 02/26/22 06:49 Respiratory Rate 16 02/26/22 06:49 Blood Pressure 116/69 02/26/22 06:49 Pulse Oximetry 96 02/26/22 06:49 Oxygen Delivery Me thod 02/26/22 06:49 [facility] - Psych Medical Decision Making Patient is a 31-year-old female who is brought into the ED via EMS for a psych eval. someone called police and EMS found to do welfare check on patient. Police state that she was acting odd and babbling nonsense and seemed out of it. They thought she was unsafe to take care of herself for her 5-year-old daughter and brought her here to the ED for evaluation and filled out affidavits for 96- hour hold. Nurses currently calling outside psych facilities for transfer. 31-year-old female checked out to me at shift change by Mr. Larisa PA-C. This lady remains medically stable. Her vitals are good. No intervention has been needed at this point. Information has been faxed to other facilities, as we have no neuropsychiatric beds available at this facility. Her urinalysis and urine drug screen are pending as well. She will be checked out to the oncoming physician at shift change. 02/26/2022 5:42 PM. Care assumed at change of shift patient has not had any outburst or required any restraints or any interaction in the last 12 hours. We have gotten the receiving facility at [place] [facility] they will transfer at around 7 or 8 PM this evening via ambulance. Medical Records I reviewed the patient's medical records. Lab Data : 02/25/22 15:50 02/25/22 15:50 Laboratory Results WBC 4.3 10^3/uL (4.0-10.0) 02/25/22 15:50 RBC 3.93 10^6/uL (4.1-5.3) L 02/25/22 15:50 Hgb 12.3 g/dL (11.5-15.3) 02/25/22 15:50 Hct 36.6 % (37.0-47.0) L 02/25/22 15:50 MCV 93.1 fl (81-99) 02/25/22 15:50 MCH 31.3 pg (28.0-34.0) 02/25/22 15:50 MCHC 33.6 g/dL (30.0-36.0) 02/25/22 15:50 RDW 12.0 % (12.1-15.1) L 02/25/22 15:50 Plt Count 227 10^3/cmm (130-400) 02/25/22 15:50 MPV 10.9 fL (7.4-10.4) H 02/25/22 15:50 Neut % (Auto) 43.0 % 02/25/22 15:50 Lymph % (Auto) 46.6 % 02/25/22 15:50 Edmunds % (Auto) 5.3 % 02/25/22 15:50 Eos % (Auto) 4.6 % 02/25/22 15:50 Baso % (Auto) 0.5 % 02/25/22 15:50 Neut # (Auto) 1.85 10^3/uL (1.8-7.7) 02/25/22 15:50 Lymph # (Auto) 2.0 10^3/uL (0.8-4.8) 02/25/22 15:50 Edmunds # (Auto) 0.2 10^3/uL (0.2-0.9) 02/25/22 15:50 Eos # (Auto) 0.2 10^3/uL (0.0-0.8) 02/25/22 15:50 Baso # (Auto) 0.0 10^3/uL (0.0-0.1) 02/25/22 15:50 Nucleated RBC % (auto) 0 % 02/25/22 15:50 Nucleated RBCs # 0.0 /100WBC 02/25/22 15:50 Sodium 139 mmol/L (136-145) 02/25/22 15:50 Potassium 3.6 mmol/L (3.5-5.1) 02/25/22 15:50 Chloride 105 mmol/L (98-107) 02/25/22 15:50 Carbon Dioxide 23 mmol/L (22-29) 02/25/22 15:50 Anion Gap 14.6 (5-19) 02/25/22 15:50 BUN 8 mg/dL (6-20) 02/25/22 15:50 Creatinine 0.7 mg/dL (0.5-0.9) 02/25/22 15:50 GFR Calculation 98.3 mL/min (90-130) 02/25/22 15:50 Glucose 85 mg/dL (65-115) 02/25/22 15:50 Calculated Osmolality 286 mOsm/kg (285-295) 02/25/22 15:50 Calcium 8.7 mg/dL (8.5-10.5) 02/25/22 15:50 Total Bilirubin 0.2 mg/dL (0.15-1.2) 02/25/22 15:50 AST 11 U/L (0-32) 02/25/22 15:50 ALT 7 U/L (0-33) 02/25/22 15:50 Alkaline Phosphatase 51 U/L (35-105) 02/25/22 15:50 Total Protein 6.2 g/dL (6.6-8.7) L 02/25/22 15:50 Albumin 3.9 g/dL (3.5-5.2) 02/25/22 15:50 Globulin 2.3 g/dL (1.3-4.6) 02/25/22 15:50 TSH 1.13 uIU/mL (0.27-4.20) 02/25/22 15:50 HCG, Qual Negative (Negative) 02/25/22 15:50 Urine Color Lor (Yellow) 02/25/22 12:01 Urine Appearance Hazy (CLEAR) A 02/25/22 12:01 Urine pH 6 (5-7) 02/25/22 12:01 Ur Specific [place] 1.020 (1.005-1.030) 02/25/22 12:01 Urine Protein Trace (Negative) 02/25/22 12:01 Urine Glucose (UA) Norm (Normal) 02/25/22 12:01 Urine Ketones 2+ (Negative) H 02/25/22 12:01 Urine Blood Neg (Negative) 02/25/22 12:01 Urine Nitrate Negative (Negative) 02/25/22 12:01 Urine Bilirubin Neg (Negative) 02/25/22 12:01 Urine Urobilinogen Norm mg/dL (Negative) 02/25/22 12:01 Ur Leukocyte Esterase Trace (Negative) H 02/25/22 12:01 Urine RBC 0-4 /hpf (0-2) H 02/25/22 12:01 Urine WBC None /hpf (0-5) 02/25/22 12:01 Ur Squamous Epith Cells 0-4 /hpf (0-5) H 02/25/22 12:01 Amorphous Sediment Not Reportable 02/25/22 12:01 Urine Bacteria Trace /hpf (NONE) 02/25/22 12:01 Salicylates < 0.3 mg/dL (3-10) L 02/25/22 15:50 Urine Opiates Screen Negative ng/mL (Negative) 02/25/22 12:01 Acetaminophen < 5.0 ug/mL (10-30) L 02/25/22 15:50 Ur Barbiturates Screen Negative ng/mL (Negative) 02/25/22 12:01 Ur Phencyclidine Scrn Negative ng/mL (Negative) 02/25/22 12:01 Ur Amphetamines Screen Negative ng/mL (Negative) 02/25/22 12:01 U Benzodiazepines Scrn Negative ng/mL (Negative) 02/25/22 12:01 Urine Cocaine Screen Negative ng/mL (Negative) 02/25/22 12:01 U Marijuana (THC) Screen Positive ng/mL (Negative) H 02/25/22 12:01 Ethyl Alcohol < 10 mg/dL (0-10) 02/25/22 15:50 SARS-CoV-2 Ag (Rapid) negative (Negative) 02/25/22 18:58 Discharge Plan Discharge Patient Disposition: [facility] Clinical Impression: Acute psychosis, PTSD (post-traumatic stress disorder), Depression Condition: Stable Sign Out Sign Out Data: Patient Sign Out occurred on 02/26/22 at 07:08. Patient's care was discussed, and care was transferred from to Eamon Trinidad DO. Coding Level of Care Code ED Communications Representative for Scarlett Fwd Exam Comprehensive
[2022-02-25 16:02] LABS: Basophils % 0.5 %; Eosinophils # 0.2 10^3/uL (0.0-0.8); Eosinophils % 4.6 %; Hematocrit 36.6 % (37.0-47.0); Hemoglobin 12.3 g/dL (11.5-15.3); Lymphocytes % 46.6 %; Mean Corpuscular HGB Conc 33.6 g/dL (30.0-36.0); Mean Corpuscular Hemoglobin 31.3 pg (28.0-34.0); Mean Corpuscular Volume 93.1 fl (81-99); Mean Platelet Volume 10.9 fL (7.4-10.4); Monocytes # 0.2 10^3/uL (0.2-0.9); Monocytes % 5.3 %; Neutrophils # 1.85 10^3/uL (1.8-7.7); Nucleated Red Blood Cells % 0 %; Platelet Count 227 10^3/cmm (130-400); Red Blood Count 3.93 10^6/uL (4.1-5.3); White Blood Count 4.3 10^3/uL (4.0-10.0)
[2022-02-25 16:14] LABS: HCG, Serum Qual Negative (Negative)
[2022-02-25 16:19] LABS: Alanine Aminotransferase 7 U/L (0-33); Albumin Level 3.9 g/dL (3.5-5.2); Alkaline Phosphatase 51 U/L (35-105); Anion Gap 14.6 (5-19); Aspartate Amino Transferase 11 U/L (0-32); Blood Urea Nitrogen 8 mg/dL (6-20); Calcium 8.7 mg/dL (8.5-10.5); Carbon Dioxide 23 mmol/L (22-29); Chloride 105 mmol/L (98-107); Globulin 2.3 g/dL (1.3-4.6); Glomerular Filtration Rate 98.3 mL/min (90-130); Glucose 85 mg/dL (65-115); Osmolality Calculated 286 mOsm/kg (285-295); Potassium 3.6 mmol/L (3.5-5.1); Sodium 139 mmol/L (136-145); Total Bilirubin 0.2 mg/dL (0.15-1.2); Total Protein 6.2 g/dL (6.6-8.7)
[2022-02-25 16:20] LABS: Acetaminophen < 5.0 ug/mL (10-30); Alcohol Level < 10 mg/dL (0-10); Salicylate < 0.3 mg/dL (3-10)
[2022-02-25 16:36] VITALS: BP 100/67; PULSE 77; O2SAT 96
[2022-02-25 17:32] VITALS: BP 105/62; PULSE 75; O2SAT 95
[2022-02-25 18:00] VITALS: BP 109/54; PULSE 66; O2SAT 96
[2022-02-25 18:16] VITALS: PULSE 73; O2SAT 98
--- NOTE | 2022-02-25 18:51 | ECG_ITS ---
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 Measurements Intervals [place] Rate: 75 P: 46 VT: 166 QRS: 45 QRSD: 101 T: 39 QT: 406 QTc: 456 Interpretive Statements SINUS RHYTHM No previous ECG available for comparison Electronically Signed On 02-26-2022 14:51:50 CDT by Carlos A Regalado M.D. [id number]
[2022-02-25 19:14] LABS: Thyroid Stimulating Hormone 1.13 uIU/mL (0.27-4.20)
[2022-02-25 19:27] LABS: SARS Covid-2 Antigen negative (Negative)
[2022-02-25 20:09] VITALS: BP 101/64; PULSE 69; RESP 18; O2SAT 98
--- NOTE | 2022-02-25 22:41 | PC.NURSE ---
Pt in room with 1:1 sitter, per policy all items removed and she is in paper scrubs, VSS, no complaints at this time.
--- NOTE | 2022-02-26 05:24 | PC.NURSE ---
after trying for the majority of my shift, i finally got pt out of bed to change into green scrubs and attempted to get pt to give a urine sample @ approx. 0515. she sat in the bathroom and said i know what i took so i dont know why i have to pee in a cup. --- i will try again before end of shift. i informed her that we have to have a urine sample before she will able to be transferred anywhere. her belongings are secured into locker #1.
[2022-02-26 06:49] VITALS: BP 116/69; PULSE 66; RESP 16; O2SAT 96
--- NOTE | 2022-02-26 10:50 | DCPLANNER ---
Addendum entered by Mary Ann Brown 02/27/22 07:49: Patient was accepted at [facility] in [place], and transferred to that facility. Addendum entered by Mary Ann Brown 02/26/22 13:48: patients drug screen was faxed to [place], and the facility will look over affidavits that were sent and does not need the change of venue at this time. Addendum entered by Magui Allen RN 02/26/22 12:57: Cm spoke with Paulina at [facility] in [place]. She reports she will need a change of venue, an affidavit from the physician or 2 from other professional sources and patient's drug screen, once information is received she will review with physician and notify cm of contact for nurse to nurse and transfer of patient. Patient care nurse updated as well as ER CM. Addendum entered by Magui Allen RN 02/26/22 11:33: [facility] requests drug UA. Per notes staff is attempting ua at this time and Cm will fax updated notes when available. Cm to follow. Addendum entered by Mary Ann Brown 02/26/22 11:04: [facility] - no discharges at this time, no beds Addendum entered by Mary Ann Brown 02/26/22 10:55: On Saturday February 26, 2022 case management director was asked to look for pysch placement for patient. This case management director called the following facilities to look for placement and to follow up with facilities that patients information had been faxed to: [facility] - patient is not voluntary can not go to this facility [facility] - no beds [place] - no beds [facility] - left voicedcil [facility] - no beds [facility] - patient is not voluntary can not go to this facility [facility] - patients information is being reviewed [facility] - patient is to [facility] - call back at 11:00 [facility] - left message [facility] - no beds [facility] - patients information is being reviewed [facility] - no [facility] - faxed information at 9:45 [facility] - faxed information at 9:30 [facility] - no beds [facility] - faxed information at 9:21 [facility] - call back around 2:00 pm [facility] - no beds Original Note: adult education manager was asked to look for psych placement for patient. The following facilities were called by ER staff over the weekend: [facility] - no beds [facility] - no beds [facility] - information faxed will need to be followed up on [facility] - no beds [facility] - no beds [facility] patients information was faxed [facility] - patient [facility] - no beds [facility] - no beds [facility] - no beds [facility] - patients information faxed [facility] - no beds [facility] - no beds [facility] - no beds [facility] - patients information faxed
[2022-02-26 12:29] LABS: Add Urine Microscopic? YES; Bilirubin Urine Neg (Negative); Blood Urine Neg (Negative); Glucose Urine UA Norm (Normal); Ketones Urine 2+ (Negative); Leukocyte Esterase Urine Trace (Negative); Nitrate Urine Negative (Negative); Protein Urine Trace (Negative); Urine Appearance Hazy (CLEAR); Urine Color Amber (Yellow); Urobilinogen Urine Norm (Negative); pH Urine 6 (5-7)
[2022-02-26 12:31] LABS: Amphetamines Screen Urine Negative (Negative); Barbiturates Screen Urine Negative (Negative); Benzodiazepines Screen Urine Negative (Negative); Cocaine Screen Urine Negative (Negative); Opiate Screen Urine Negative (Negative); PCP Screen Urine Negative (Negative); RBC Urine 0-4 /hpf (0-2); THC Screen Urine Positive (Negative)
[2022-02-26 12:32] LABS: Add Urine Culture? No; Bacteria Urine TRACE /hpf; Squamous Epithelial Cell Urine 0-4 /hpf (0-5)
== END 2022-02-26 20:44 ==
PROVIDERS: Physician Assistant; Emergency Provider Family Medicine
DX: F23 Brief psychotic disorder (principal); F43.10 Post-traumatic stress disorder, unspecified; F32.A Depression, unspecified; F17.210 Nicotine dependence, cigarettes, uncomplicated; Z20.822 Contact with and (suspected) exposure to COVID-19
CPT/HCPCS: 80053; 80306; 80307; 81001; 84443; 84703; 85025; 87426; 93005; 99285